=== PATIENT | female | born 1965 | race Two or more races ===

== ENCOUNTER 2022-04-13 14:59 | Emergency (ER) | payer MEDICAID, OTHER ==
[~2022-04-13] VITALS: Ht 162.6 cm; Wt 110.2 kg
[2022-04-13 15:22] VITALS: BP 151/9
[2022-04-13 17:41] LABS: Basophils # (auto) 0 10 ^3/uL (0-0.2); Basophils % (auto) 0.2 % (0.0-2.0); Eosinophils # (auto) 0.1 10 ^3/uL (0-0.8); Eosinophils % (auto) 1.6 % (0.0-7.0); Hematocrit 30.4 % (36.0-46.0); Hemoglobin 10.1 g/dL (12.2-16.2); Lymphocytes # (auto) 0.4 10 ^3/uL (0.4-5.4); Lymphocytes % (auto) 7.3 % (10.0-50.0); Mean Corpuscular Hemoglobin 29.7 pg (28.0-32.0); Mean Corpuscular Hgb Conc. 33.1 g/dL (32.0-36.0); Mean Corpuscular Volume 89.6 fL (80.0-100.0); Monocytes # (auto) 0.6 10 ^3/uL (0-1.3); Monocytes % (auto) 10.7 % (0.0-12.0); Neutrophils # (auto) 4.6 10 ^3/uL (1.6-8.6); Neutrophils % (auto) 80.2 % (37.0-80.0); Red Cell Distribution Width 14.5 % (11.8-14.3); White Blood Cell 5.7 10^3/uL (4.4-10.8)
[2022-04-13 18:04] LABS: Albumin 3.4 g/dL (3.4-5.0); BUN/Creatinine Ratio 15.8; Calcium 8.7 mg/dL (8.5-10.1); Potassium 4.3 mmol/L (3.5-5.1)
[2022-04-13 18:06] LABS: Bilirubin, Total 0.2 mg/dL (0.2-1.0); Total Protein 7.5 g/dL (6.4-8.2)
== END 2022-04-14 01:23 | disposition left against medical advice (07) ==
LOC: ER 14:59
DX: R79.1 Abnormal coagulation profile (principal); Z53.21 Procedure and treatment not carried out due to patient leaving prior to being seen by health care provider
CPT/HCPCS: 36415; 80053; 85025

== ENCOUNTER 2022-11-27 14:40 | Emergency (ER) | payer MEDICAID ==
[~2022-11-27] VITALS: Ht 162.6 cm; Wt 90.9 kg
[2022-11-27] MEDS ORDERED: SODIUM CHLORIDE 0.9% 500 ML IV ONE (15:00)
[2022-11-27 15:28] LABS: Basophils # (auto) 0.1 10 ^3/uL (0-0.2); Eosinophils # (auto) 0.3 10 ^3/uL (0-0.8); Eosinophils % (auto) 2.2 % (0.0-7.0); Hemoglobin 8.8 g/dL (12.2-16.2); Monocytes # (auto) 1.1 10 ^3/uL (0-1.3)
[2022-11-27 15:32] LABS: Basophils % (auto) 0.4 % (0.0-2.0); Hematocrit 27.6 % (36.0-46.0); Lymphocytes # (auto) 0.5 10 ^3/uL (0.4-5.4); Lymphocytes % (auto) 3.8 % (10.0-50.0); Mean Corpuscular Hemoglobin 28.9 pg (28.0-32.0); Mean Corpuscular Hgb Conc. 31.9 g/dL (32.0-36.0); Mean Corpuscular Volume 90.4 fL (80.0-100.0); Monocytes % (auto) 7.8 % (0.0-12.0); Neutrophils # (auto) 12.3 10 ^3/uL (1.6-8.6); Neutrophils % (auto) 85.8 % (37.0-80.0); Red Blood Cells 3.05 10^6/uL (4.0-5.20); Red Cell Distribution Width 14.2 % (11.8-14.3); White Blood Cell 14.3 10^3/uL (4.4-10.8)
[2022-11-27 15:41] LABS: Albumin 2.5 g/dL (3.4-5.0); Calcium 8.9 mg/dL (8.5-10.1); Potassium 3.8 mmol/L (3.5-5.1)
[2022-11-27 15:45] LABS: BUN/Creatinine Ratio 13.2 (10.0-20.0); Bilirubin, Total 0.1 mg/dL (0.2-1.0)
[2022-11-27] MEDS ORDERED: levoFLOXacin 500MG 100 ML IV ONE (17:15)
[2022-11-27] MEDS ORDERED: SODIUM CHLORIDE 0.9% 1,000 ML IV ONE (17:15)
[2022-11-27 17:46] LABS: Urine Amorphous Crystal FEW /hpf (None Seen); Urine Bacteria FEW /hpf (None Seen); Urine Blood 2+ /uL (Negative); Urine Budding Yeast FEW /hpf (None Seen); Urine Mucus FEW (None Seen); Urine Specific Gravity 1.028 (1.001-1.035); Urine WBC 194 /hpf (0 - 5)
[2022-11-27 18:14] VITALS: PULSE 79; RESP 20
[2022-11-27 19:45] VITALS: PULSE 82; RESP 19; O2SAT 99
[2022-11-27 19:52] VITALS: TEMP 98.4
[2022-11-27 20:00] VITALS: BP 174/75; PULSE 97; RESP 16; O2SAT 100
== END 2022-11-27 20:47 | disposition left against medical advice (07) ==
LOC: EDBD 14:40 → ER 14:40
DX: N10 Acute pyelonephritis (principal); D64.9 Anemia, unspecified; R42 Dizziness and giddiness; D72.829 Elevated white blood cell count, unspecified; Z90.49 Acquired absence of other specified parts of digestive tract; Z87.891 Personal history of nicotine dependence
CPT/HCPCS: 36415; 80053; 81001; 83605; 85025; 87040; 93005; 96365; 99285; J1956; J7030; J7040

== ENCOUNTER 2023-01-07 14:12 | Emergency (ER) | payer MEDICAID ==
[~2023-01-07] VITALS: Ht 160 cm; Wt 90.9 kg
[2023-01-07 14:44] VITALS: BP 90/50; PULSE 109; RESP 17; O2SAT 97
[2023-01-07 15:09] LABS: Hemoglobin 8.6 g/dL (12.2-16.2); Lymphocytes # (auto) 0.6 10 ^3/uL (0.4-5.4); Lymphocytes % (auto) 3.9 % (10.0-50.0); Monocytes # (auto) 1.1 10 ^3/uL (0-1.3); Red Cell Distribution Width 15.7 % (11.8-14.3)
[2023-01-07 15:11] LABS: Basophils # (auto) 0 10 ^3/uL (0-0.2); Basophils % (auto) 0.3 % (0.0-2.0); Eosinophils # (auto) 0.1 10 ^3/uL (0-0.8); Hematocrit 26.7 % (36.0-46.0); Mean Corpuscular Hemoglobin 27.5 pg (28.0-32.0); Mean Corpuscular Hgb Conc. 32.2 g/dL (32.0-36.0); Mean Corpuscular Volume 85.3 fL (80.0-100.0); Monocytes % (auto) 7.5 % (0.0-12.0); Neutrophils # (auto) 13.2 10 ^3/uL (1.6-8.6); Neutrophils % (auto) 87.3 % (37.0-80.0); Red Blood Cells 3.13 10^6/uL (4.0-5.20); White Blood Cell 15.1 10^3/uL (4.4-10.8)
[2023-01-07] MEDS ORDERED: ONDANSETRON ODT 4 MG TAB PO ONE (15:15)
[2023-01-07] MEDS ORDERED: SODIUM CHLORIDE 0.9% 1,000 ML IVB ONE (15:15)
[2023-01-07] MEDS ORDERED: HYDROcodone-ACET 10/325MG TAB PO ONE (15:15)
[2023-01-07 15:30] LABS: Alanine Aminotransferase 10 U/L (7-40); Albumin 3.7 g/dL (3.2-4.8); Alkaline Phosphatase 161 U/L (46-116); Anion Gap 4.7 (5-15); Aspartate Aminotransferase < 8 U/L (13-40); BUN/Creatinine Ratio 14.4 (10.0-20.0); Bilirubin, Total 0.3 mg/dL (0.2-1.0); Blood Urea Nitrogen 13 mg/dL (9-23); Calcium 9.2 mg/dL (8.7-10.4); Carbon Dioxide 29.3 mmol/L (20-30); Chloride 103 mmol/L (98-107); Glucose 105 mg/dL (74-106); Magnesium 1.7 mg/dL (1.6-2.6); Potassium 4.2 mmol/L (3.5-5.1); Sodium 137 mmol/L (136-145); Total Protein 6.3 g/dL (5.7-8.2)
[2023-01-07 15:49] LABS: INR 1.04 (0.9-1.15); Partial Thromboplastin Time 31.3 SEC (24.5-34.5); Prothrombin Time 10.9 sec (9.3-11.8)
[2023-01-07] MEDS ORDERED: metroNIDAZOLE 500MG/100ML 100 ML IV ONE (21:00)
[2023-01-07] MEDS ORDERED: SODIUM CHLORIDE 0.9% 2,750 ML IV ONE (21:00)
[2023-01-07] MEDS ORDERED: PIPERACILLIN-TAZOB 3.375GM 100 ML IV SCH (21:06)
[2023-01-07] MEDS ORDERED: VANCOMYCIN PER PHARMACY 0 MG IV SCH (21:15)
[2023-01-07] MEDS ORDERED: VANCOMYCIN 1GM/250ML 250 ML IV SCH (22:00)
[2023-01-07] MEDS ORDERED: PIPERACILLIN-TAZO 4.5GM 100 ML IV SCH (22:00)
[2023-01-08] MEDS ORDERED: VANCOMYCIN 1GM/250ML 250 ML IV ONE (01:00)
== END 2023-01-07 20:09 | disposition left against medical advice (07) ==
LOC: ER 14:12
DX: K65.1 Peritoneal abscess (principal); Z53.29 Procedure and treatment not carried out because of patient's decision for other reasons
CPT/HCPCS: 36415; 71045; 74176; 80053; 83605; 83690; 83735; 83880; 84443; 84484; 85025; 85610; 85730; 86850; 86900; 86901; 87040

== ENCOUNTER 2023-05-14 06:40 | Inpatient (IN) | payer MEDICAID ==
[2023-05-14] VITALS (46 sets, daily range): BP systolic 73–158; BP diastolic 38–84; PULSE 97–135; RESP 17–32; TEMP 36.6; O2SAT 93–100
[~2023-05-14] VITALS: Ht 167.6 cm; Wt 91.2 kg
[2023-05-14] MEDS ORDERED: PIPERACILLIN-TAZO 4.5GM 100 ML IV ONE (07:15)
[2023-05-14] MEDS ORDERED: MORPHINE SULFATE 4 MG/ML SYR/VIAL IV ONE (07:15)
[2023-05-14] MEDS ORDERED: ONDANSETRON HCL 4 MG/2 ML VIAL IV ONE (07:15)
[2023-05-14] MEDS ORDERED: SODIUM CHLORIDE 0.9% 2,000 ML IV ONE ×3 (07:15→21:00)
[2023-05-14] MEDS ORDERED: VANCOMYCIN 1GM/200ML 200 ML IV ONE (07:15)
[2023-05-14] MEDS ORDERED: ROCURONIUM 10MG/ML 10ML VIAL IV ONE ×3 (07:20→14:12)
[2023-05-14] MEDS ORDERED: ETOMIDATE (2MG/ML) 20ML VIAL IV ONE ×2 (07:20→07:45)
[2023-05-14] MEDS ORDERED: MIDAZOLAM DRIP 50 mg/50mL 50 ML IV ONE (07:25)
[2023-05-14] MEDS: PROPOFOL 100 ML IV SCH (07:30)
[2023-05-14] MEDS: MIDAZOLAM DRIP 50 mg/50mL 50 ML IV SCH (07:31)
[2023-05-14 07:50] LABS: Eosinophils # (auto) 0 10 ^3/uL (0-0.8)
[2023-05-14 07:55] LABS: Basophils # (auto) 0 10 ^3/uL (0-0.2); Basophils % (auto) 0.3 % (0.0-2.0); Eosinophils % (auto) 0.1 % (0.0-7.0); Hematocrit 35.7 % (36.0-46.0); Hemoglobin 10.9 g/dL (12.2-16.2); Lymphocytes # (auto) 1.4 10 ^3/uL (0.4-5.4); Lymphocytes % (auto) 7.8 % (10.0-50.0); Mean Corpuscular Hemoglobin 29.8 pg (28.0-32.0); Mean Corpuscular Hgb Conc. 30.6 g/dL (32.0-36.0); Mean Corpuscular Volume 97.5 fL (80.0-100.0); Monocytes # (auto) 0.8 10 ^3/uL (0-1.3); Monocytes % (auto) 4.4 % (0.0-12.0); Neutrophils # (auto) 15.9 10 ^3/uL (1.6-8.6); Neutrophils % (auto) 87.4 % (37.0-80.0); Red Blood Cells 3.66 10^6/uL (4.0-5.20); Red Cell Distribution Width 17.5 % (11.8-14.3); White Blood Cell 18.2 10^3/uL (4.4-10.8)
[2023-05-14 07:57] LABS: Alanine Aminotransferase 14 U/L (7-40); Albumin 3.2 g/dL (3.2-4.8); Alkaline Phosphatase 310 U/L (46-116); Anion Gap 16 (5-15); Aspartate Aminotransferase 56 U/L (13-40); BUN/Creatinine Ratio 9.9 (10.0-20.0); Blood Urea Nitrogen 16 mg/dL (9-23); Calcium 9.4 mg/dL (8.5-10.1); Carbon Dioxide 13 mmol/L (20-30); Chloride 103 mmol/L (98-107); Sodium 132 mmol/L (136-145)
[2023-05-14 07:58] LABS: Bilirubin, Total 0.6 mg/dL (0.2-1.0)
[2023-05-14 08:10] LABS: Glucose 253 mg/dL (74-106)
[2023-05-14 08:17] LABS: INR 1.08 (0.9-1.15); Prothrombin Time 11.3 sec (9.3-11.8)
[2023-05-14 08:19] LABS: Lactic Acid w/Reflex 7.3 mmol/L (0.4-2.0)
[2023-05-14 09:14] LABS: Lipase 24 U/L (12-53)
[2023-05-14 09:17] LABS: Urine Epithelial Cast None Seen /hpf (<5)
[2023-05-14 09:39] LABS: Urine Bacteria NONE SEEN /hpf (None Seen); Urine Blood 1+ /uL (Negative); Urine Clarity CLOUDY (Clear); Urine Color Yellow (Yellow); Urine Hyaline Cast FEW /lpf (0 - 2); Urine Mucus FEW (None Seen); Urine Protein, UAD 2+ (Negative); Urine Specific Gravity 1.022 (1.001-1.035); Urine Sperm PRESENT /hpf (None Seen); Urine Urobilinogen Normal (Negative); Urine WBC 48 /hpf (0 - 5); Urine WBC Clumps PRESENT /hpf (None Seen); Urine pH 6.5 (5.0-8.0)
[2023-05-14 09:58] LABS: Base Excess -12.9 mmol/L (-2.0-2.0)
[2023-05-14] MEDS ORDERED: SODIUM BICARBONATE 50ML VIAL 50 ML in SOD CHL 0.45% 1,000 ML IV SCH (10:15)
[2023-05-14] MEDS ORDERED: VANCOMYCIN PER PHARMACY 0 MG IV SCH ×2 (10:15→11:15)
[2023-05-14] MEDS ORDERED: metroNIDAZOLE 500MG/100ML 100 ML IV ONE ×2 (10:15→13:04)
[2023-05-14] MEDS ORDERED: MEROPENEM 1GM IVPB 100 ML IV ONE (10:15)
[2023-05-14] MEDS ORDERED: SODIUM BICARBONATE 50ML VIAL 50 ML in SOD CHL 0.45% 1,000 ML IV ONE (10:15)
[2023-05-14] MEDS ORDERED: ceFAZolin 1GM/50ML 50 ML IV ONE (10:15)
[2023-05-14] MEDS ORDERED: SODIUM CHLORIDE 0.9% 1,000 ML IV ONE (10:30)
[2023-05-14] MEDS ORDERED: PANTOPRAZOLE 40 MG/10 ML VIAL INJ IV ONE (10:30)
[2023-05-14] MEDS ORDERED: SODIUM CHLORIDE 0.9% 1,000 ML IV SCH (10:45)
[2023-05-14 10:58] LABS: Basophils # (auto) 0 10 ^3/uL (0-0.2); Basophils % (auto) 0.2 % (0.0-2.0); Eosinophils # (auto) 0 10 ^3/uL (0-0.8); Hematocrit 38.7 % (36.0-46.0); Lymphocytes # (auto) 0.4 10 ^3/uL (0.4-5.4); Lymphocytes % (auto) 2.6 % (10.0-50.0); Mean Corpuscular Hemoglobin 30.1 pg (28.0-32.0); Mean Corpuscular Volume 97.2 fL (80.0-100.0); Monocytes % (auto) 6.8 % (0.0-12.0); Neutrophils # (auto) 13.8 10 ^3/uL (1.6-8.6); Neutrophils % (auto) 90.4 % (37.0-80.0); Red Blood Cells 3.98 10^6/uL (4.0-5.20); Red Cell Distribution Width 17.4 % (11.8-14.3); White Blood Cell 15.3 10^3/uL (4.4-10.8)
[2023-05-14] MEDS ORDERED: ceFAZolin 1GM/50ML 50 ML IV SCH ×2 (11:00→14:00)
[2023-05-14] MEDS ORDERED: SODIUM BICARB 50ML SYR 100 ML in SODIUM CHLORIDE 0.9% 1,000 ML IV SCH (11:00)
[2023-05-14] MEDS ORDERED: SODIUM BICARBONATE 50ML VIAL 150 ML in D5W 5% 1,000 ML IV SCH (11:15)
[2023-05-14] MEDS ORDERED: DEXTROSE (50%) 50ML SYRG IV PRN (11:15)
[2023-05-14] MEDS ORDERED: CEFEPIME 2GM/50ML NS 50 ML IV ONE (11:15)
[2023-05-14 11:21] LABS: Alanine Aminotransferase 20 U/L (7-40); Albumin 3.2 g/dL (3.2-4.8); Alkaline Phosphatase 353 U/L (46-116); Anion Gap 11 (5-15); Aspartate Aminotransferase 61 U/L (13-40); BUN/Creatinine Ratio 10.3 (10.0-20.0); Blood Urea Nitrogen 16 mg/dL (9-23); Calcium 9.1 mg/dL (8.5-10.1); Carbon Dioxide 16 mmol/L (20-30); Chloride 104 mmol/L (98-107); Glucose 178 mg/dL (74-106); Potassium 4.9 mmol/L (3.5-5.1); Sodium 131 mmol/L (136-145)
[2023-05-14 11:22] LABS: Bilirubin, Total 1.3 mg/dL (0.2-1.0); Total Protein 5.9 g/dL (5.7-8.2)
[2023-05-14] MEDS: NOREPINEPHRINE 8 MG/250ML KIT 250 ML IV SCH ×2 (11:28→15:50)
[2023-05-14] MEDS ORDERED: LIDOCAINE 1% (LOCAL ANESTH.) PF 5ml SDV ID ONE (11:30)
[2023-05-14] MEDS ORDERED: PHENYLEPHRINE HCL 10 MG/ML VL ONE (11:47)
[2023-05-14] MEDS: ACCU-CHEK COMFORT CURVE STRIP VI SCH ×4 (12:00→23:41)
[2023-05-14] MEDS: InsuLIN REG 1unit/0.01ml Soln (100units/ml) SC SCH ×4 (12:00→23:41)
[2023-05-14] MEDS: IPRATROPIUM BROM 0.5 MG/2.5ML INH SOL NEB SCH ×3 (12:00→23:48)
[2023-05-14] MEDS ORDERED: metroNIDAZOLE 500MG/100ML 100 ML IV SCH ×2 (12:00→14:00)
[2023-05-14 12:15] LABS: INR 1.09 (0.9-1.15); Partial Thromboplastin Time 30.5 SEC (24.5-34.5); Prothrombin Time 11.4 sec (9.3-11.8)
[2023-05-14] MEDS ORDERED: fentaNYL CITRATE 5 ML ONE (12:15)
[2023-05-14] MEDS ORDERED: VASOPRESSIN 20 UNIT/ML ONE (13:02)
[2023-05-14] MEDS ORDERED: MIDAZOLAM HCL 2MG/2ML 2ml VIAL (1mg/ml) ONE (13:16)
[2023-05-14] MEDS ORDERED: CALCIUM CHL(10%) 100MG/ML 10ML VIAL IV ONE (13:31)
[2023-05-14] MEDS ORDERED: SODIUM BICARBONATE 8.4 % INJ 50ML VIAL IV ONE (13:31)
[2023-05-14] MEDS ORDERED: D5W/SOD CHL 0.45%/KCL 20MEQ 1,000 ML IV SCH (14:45)
[2023-05-14 15:27] LABS: Base Excess -12.4 mmol/L (-2.0-2.0)
[2023-05-14] MEDS: fentaNYL Drip 2500mCg/250mlNS 250 ML IV SCH (15:49)
[2023-05-14] MEDS ORDERED: PHENYLEPHRINE IV 250 ML IV ONE (15:57)
[2023-05-14] MEDS: PHENYLEPHRINE IV 250 ML IV SCH ×3 (16:05→21:27)
[2023-05-14 17:32] LABS: Lactic Acid w/Reflex 2.2 mmol/L (0.4-2.0)
[2023-05-14] MEDS ORDERED: ALBUMIN 25% 50 ML IV ONE ×2 (21:00)
[2023-05-14] MEDS: SODIUM CHLOR 0.9% PF (SALINE LOCK) 10ML VIAL/SYR IV SCH (21:25)
[2023-05-14] MEDS: PANTOPRAZOLE 40 MG/10 ML VIAL INJ IV SCH (21:25)
[2023-05-14] MEDS: CEFEPIME 2GM/50ML NS 50 ML IV SCH (21:25)
[2023-05-14] MEDS ORDERED: PANTOPRAZOLE 40 MG/10 ML VIAL INJ IV SCH (22:00)
[2023-05-14] MEDS: EPINEPHrine HCL 250 ML IV SCH (22:33)
[2023-05-14] MEDS: SODIUM CHLORIDE 0.9% 1,000 ML IV SCH (22:55)
[2023-05-15] VITALS (111 sets, daily range): BP systolic 79–154; BP diastolic 35–104; PULSE 105–124; RESP 14–32; TEMP 97.7–98.5; O2SAT 89–100
[2023-05-15] MEDS: PHENYLEPHRINE IV 250 ML IV SCH ×5 (00:33→14:26)
[2023-05-15] MEDS: NOREPINEPHRINE 8 MG/250ML KIT 250 ML IV SCH ×3 (01:13→09:47)
[2023-05-15] MEDS: SODIUM CHLORIDE 0.9% 1,000 ML IV SCH ×2 (02:00→05:11)
[2023-05-15] MEDS: InsuLIN REG 1unit/0.01ml Soln (100units/ml) SC SCH ×6 (04:00→23:38)
[2023-05-15] MEDS: SODIUM BICARBONATE 50ML VIAL 150 ML in D5W 5% 1,000 ML IV SCH ×2 (04:00→12:57)
[2023-05-15 04:11] LABS: Basophils # (auto) 0 10 ^3/uL (0-0.2); Basophils % (auto) 0.2 % (0.0-2.0); Eosinophils # (auto) 0 10 ^3/uL (0-0.8); Hematocrit 27.4 % (36.0-46.0); Hemoglobin 8.5 g/dL (12.2-16.2); Lymphocytes # (auto) 0.4 10 ^3/uL (0.4-5.4); Lymphocytes % (auto) 4.2 % (10.0-50.0); Mean Corpuscular Hemoglobin 29.6 pg (28.0-32.0); Mean Corpuscular Volume 95.7 fL (80.0-100.0); Monocytes # (auto) 0.7 10 ^3/uL (0-1.3); Monocytes % (auto) 7.6 % (0.0-12.0); Neutrophils # (auto) 7.6 10 ^3/uL (1.6-8.6); Nucleated Red Blood Cells % 0.1 %; Red Blood Cells 2.87 10^6/uL (4.0-5.20); Red Cell Distribution Width 16.7 % (11.8-14.3); White Blood Cell 8.7 10^3/uL (4.4-10.8)
[2023-05-15] MEDS: ACCU-CHEK COMFORT CURVE STRIP VI SCH ×6 (04:21→23:38)
[2023-05-15 04:35] LABS: Alanine Aminotransferase 16 U/L (7-40); Albumin 2.3 g/dL (3.2-4.8); Alkaline Phosphatase 121 U/L (46-116); Anion Gap 12 (5-15); Aspartate Aminotransferase 54 U/L (13-40); BUN/Creatinine Ratio 13.3 (10.0-20.0); Bilirubin, Total 0.9 mg/dL (0.2-1.0); Blood Urea Nitrogen 19 mg/dL (9-23); Carbon Dioxide 12 mmol/L (20-30); Glucose 75 mg/dL (74-106); Potassium 4.2 mmol/L (3.5-5.1); Sodium 140 mmol/L (136-145); Total Protein 3.8 g/dL (5.7-8.2)
[2023-05-15 05:10] LABS: Chloride 116 mmol/L (98-107)
[2023-05-15] MEDS: VANCOMYCIN 1GM/200ML 200 ML IV SCH ×2 (05:11→23:53)
[2023-05-15] MEDS: CEFEPIME 2GM/50ML NS 50 ML IV SCH ×3 (05:11→21:18)
[2023-05-15] MEDS: IPRATROPIUM BROM 0.5 MG/2.5ML INH SOL NEB SCH ×3 (06:14→18:12)
[2023-05-15] MEDS: ALBUTEROL SULF 2.5 MG/0.5ML(0.5%) NEB SOLN NEB PRN ×3 (06:14→18:12)
[2023-05-15] MEDS: VASOPRESSIN 20 UNITS in SODIUM CHL 0.9% 99 ML IV SCH ×2 (06:15→17:22)
[2023-05-15] MEDS: PROPOFOL 100 ML IV SCH (07:30)
[2023-05-15 07:46] LABS: Base Excess -12.4 mmol/L (-2.0-2.0)
[2023-05-15] MEDS: PANTOPRAZOLE 40 MG/10 ML VIAL INJ IV SCH ×2 (09:44→21:18)
[2023-05-15] MEDS: SODIUM CHLOR 0.9% PF (SALINE LOCK) 10ML VIAL/SYR IV SCH ×2 (09:44→21:18)
[2023-05-15] MEDS: MIDAZOLAM DRIP 50 mg/50mL 50 ML IV SCH ×2 (09:59→23:54)
[2023-05-15] MEDS ORDERED: PANTOPRAZOLE 40 MG/10 ML VIAL INJ IV SCH (10:00)
[2023-05-15] MEDS: NOREPINEPHRINE BITARTRATE 32 MG in SODIUM CHL 0.9% 218 ML IV SCH (13:44)
[2023-05-15] MEDS: PHENYLEPHRINE INJ 80 MG in SODIUM CHL 0.9% 242 ML IV SCH ×3 (16:11→22:26)
[2023-05-15] MEDS: fentaNYL Drip 2500mCg/250mlNS 250 ML IV SCH (17:54)
[2023-05-15] MEDS: EPINEPHrine HCL 250 ML IV SCH (20:17)
[2023-05-16] VITALS (107 sets, daily range): BP systolic 82–167; BP diastolic 35–107; PULSE 86–122; RESP 8–31; TEMP 98.3–98.9; O2SAT 98–100
[2023-05-16] MEDS: IPRATROPIUM BROM 0.5 MG/2.5ML INH SOL NEB SCH ×4 (00:05→18:15)
[2023-05-16] MEDS: ALBUTEROL SULF 2.5 MG/0.5ML(0.5%) NEB SOLN NEB PRN ×4 (00:05→18:15)
[2023-05-16 03:39] LABS: Basophils # (auto) 0 10 ^3/uL (0-0.2); Basophils % (auto) 0.1 % (0.0-2.0); Eosinophils # (auto) 0 10 ^3/uL (0-0.8); Lymphocytes # (auto) 0.2 10 ^3/uL (0.4-5.4); Lymphocytes % (auto) 1.1 % (10.0-50.0); Nucleated Red Blood Cells % 0.1 %
[2023-05-16 03:43] LABS: Hematocrit 24.7 % (36.0-46.0); Hemoglobin 7.9 g/dL (12.2-16.2); Mean Corpuscular Hemoglobin 29.7 pg (28.0-32.0); Mean Corpuscular Hgb Conc. 32.2 g/dL (32.0-36.0); Mean Corpuscular Volume 92.4 fL (80.0-100.0); Monocytes # (auto) 1.4 10 ^3/uL (0-1.3); Monocytes % (auto) 7.3 % (0.0-12.0); Neutrophils % (auto) 91.5 % (37.0-80.0); Red Blood Cells 2.67 10^6/uL (4.0-5.20); White Blood Cell 18.6 10^3/uL (4.4-10.8)
[2023-05-16 03:49] LABS: Alanine Aminotransferase 19 U/L (7-40); Albumin 2.1 g/dL (3.2-4.8); Alkaline Phosphatase 108 U/L (46-116); Anion Gap 11 (5-15); Aspartate Aminotransferase 41 U/L (13-40); BUN/Creatinine Ratio 14.4 (10.0-20.0); Blood Urea Nitrogen 27 mg/dL (9-23); Calcium 7.4 mg/dL (8.7-10.4); Carbon Dioxide 15 mmol/L (20-30); Chloride 112 mmol/L (98-107); Glucose 103 mg/dL (74-106); Potassium 4.2 mmol/L (3.5-5.1); Sodium 138 mmol/L (136-145)
[2023-05-16 03:50] LABS: Bilirubin, Total 0.6 mg/dL (0.2-1.0); Total Protein 3.9 g/dL (5.7-8.2)
[2023-05-16] MEDS: InsuLIN REG 1unit/0.01ml Soln (100units/ml) SC SCH ×5 (04:00→20:00)
[2023-05-16] MEDS: ACCU-CHEK COMFORT CURVE STRIP VI SCH ×5 (04:15→20:00)
[2023-05-16] MEDS: VASOPRESSIN 20 UNITS in SODIUM CHL 0.9% 99 ML IV SCH ×2 (04:16→17:28)
[2023-05-16] MEDS: CEFEPIME 2GM/50ML NS 50 ML IV SCH ×3 (05:26→21:37)
[2023-05-16] MEDS: NOREPINEPHRINE BITARTRATE 32 MG in SODIUM CHL 0.9% 218 ML IV SCH (05:27)
[2023-05-16] MEDS: PHENYLEPHRINE INJ 80 MG in SODIUM CHL 0.9% 242 ML IV SCH (05:27)
[2023-05-16] MEDS: PROPOFOL 100 ML IV SCH (07:30)
[2023-05-16 08:02] LABS: Base Excess -7.6 mmol/L (-2.0-2.0)
[2023-05-16 09:08] LABS: Basophils # (auto) 0.1 10 ^3/uL (0-0.2); Eosinophils # (auto) 0 10 ^3/uL (0-0.8); Hemoglobin 7.7 g/dL (12.2-16.2)
[2023-05-16 09:11] LABS: Basophils % (auto) 0.6 % (0.0-2.0); Hematocrit 24.1 % (36.0-46.0); Lymphocytes # (auto) 0.2 10 ^3/uL (0.4-5.4); Lymphocytes % (auto) 0.8 % (10.0-50.0); Mean Corpuscular Hemoglobin 29.5 pg (28.0-32.0); Mean Corpuscular Hgb Conc. 31.9 g/dL (32.0-36.0); Mean Corpuscular Volume 92.3 fL (80.0-100.0); Monocytes % (auto) 10.5 % (0.0-12.0); Neutrophils # (auto) 16.7 10 ^3/uL (1.6-8.6); Neutrophils % (auto) 88.1 % (37.0-80.0); Nucleated Red Blood Cells % 0.1 %; Red Blood Cells 2.61 10^6/uL (4.0-5.20); Red Cell Distribution Width 16.7 % (11.8-14.3)
[2023-05-16 09:32] LABS: Alanine Aminotransferase 31 U/L (7-40); Albumin 2.2 g/dL (3.2-4.8); Alkaline Phosphatase 110 U/L (46-116); Anion Gap 14 (5-15); Aspartate Aminotransferase 50 U/L (13-40); BUN/Creatinine Ratio 13.4 (10.0-20.0); Bilirubin, Total 0.5 mg/dL (0.2-1.0); Blood Urea Nitrogen 27 mg/dL (9-23); Calcium 7.9 mg/dL (8.5-10.1); Carbon Dioxide 16 mmol/L (20-30); Chloride 109 mmol/L (98-107); Glucose 108 mg/dL (74-106); Potassium 4.5 mmol/L (3.5-5.1); Sodium 139 mmol/L (136-145)
[2023-05-16] MEDS: SODIUM CHLOR 0.9% PF (SALINE LOCK) 10ML VIAL/SYR IV SCH ×2 (10:58→21:37)
[2023-05-16] MEDS: PANTOPRAZOLE 40 MG/10 ML VIAL INJ IV SCH ×2 (10:58→21:37)
[2023-05-16] MEDS: fentaNYL Drip 2500mCg/250mlNS 250 ML IV SCH ×2 (11:15→15:29)
[2023-05-16] MEDS: SODIUM BICARBONATE 50ML VIAL 150 ML in D5W 5% 1,000 ML IV SCH ×3 (12:01)
[2023-05-16] MEDS: MIDAZOLAM DRIP 50 mg/50mL 50 ML IV SCH (13:23)
[2023-05-16] MEDS: EPINEPHrine HCL 250 ML IV SCH (21:00)
[2023-05-17] VITALS (115 sets, daily range): BP systolic 88–292; BP diastolic 28–266; PULSE 73–112; RESP 19–30; TEMP 97.5–98.7; O2SAT 94–100
[2023-05-17] MEDS: ACCU-CHEK COMFORT CURVE STRIP VI SCH ×7 (00:08→23:42)
[2023-05-17] MEDS: IPRATROPIUM BROM 0.5 MG/2.5ML INH SOL NEB SCH ×5 (00:24→18:53)
[2023-05-17] MEDS: ALBUTEROL SULF 2.5 MG/0.5ML(0.5%) NEB SOLN NEB PRN ×5 (00:24→18:53)
[2023-05-17] MEDS: SODIUM BICARBONATE 50ML VIAL 150 ML in D5W 5% 1,000 ML IV SCH (00:59)
[2023-05-17] MEDS: MIDAZOLAM DRIP 50 mg/50mL 50 ML IV SCH ×2 (01:00→13:30)
[2023-05-17] MEDS ORDERED: SODIUM BICARBONATE 8.4 % INJ 50ML VIAL IV ONE (01:05)
[2023-05-17] MEDS: VASOPRESSIN 20 UNITS in SODIUM CHL 0.9% 99 ML IV SCH ×2 (03:00→14:31)
[2023-05-17] MEDS ORDERED: VASOPRESSIN 20 UNIT/ML ONE (03:24)
[2023-05-17] MEDS: InsuLIN REG 1unit/0.01ml Soln (100units/ml) SC SCH ×7 (04:00→23:43)
[2023-05-17 04:10] LABS: Basophils # (auto) 0 10 ^3/uL (0-0.2); Basophils % (auto) 0.2 % (0.0-2.0); Eosinophils # (auto) 0 10 ^3/uL (0-0.8); Monocytes # (auto) 1.3 10 ^3/uL (0-1.3); Nucleated Red Blood Cells % 0.1 %
[2023-05-17 04:15] LABS: Lymphocytes # (auto) 0.1 10 ^3/uL (0.4-5.4); Lymphocytes % (auto) 0.9 % (10.0-50.0); Mean Corpuscular Hemoglobin 29.1 pg (28.0-32.0); Mean Corpuscular Hgb Conc. 31.5 g/dL (32.0-36.0); Mean Corpuscular Volume 92.4 fL (80.0-100.0); Monocytes % (auto) 8.1 % (0.0-12.0); Neutrophils # (auto) 14.7 10 ^3/uL (1.6-8.6); Neutrophils % (auto) 90.8 % (37.0-80.0); Red Blood Cells 2.38 10^6/uL (4.0-5.20); White Blood Cell 16.2 10^3/uL (4.4-10.8)
[2023-05-17 04:33] LABS: Alanine Aminotransferase 20 U/L (7-40); Alkaline Phosphatase 107 U/L (46-116); Anion Gap 10 (5-15); BUN/Creatinine Ratio 15.2 (10.0-20.0); Blood Urea Nitrogen 31 mg/dL (9-23); Calcium 7.8 mg/dL (8.7-10.4); Carbon Dioxide 20 mmol/L (20-30); Chloride 108 mmol/L (98-107); Glucose 122 mg/dL (74-106); Sodium 138 mmol/L (136-145)
[2023-05-17 04:34] LABS: Albumin 2.2 g/dL (3.2-4.8); Aspartate Aminotransferase 38 U/L (13-40); Bilirubin, Total 0.5 mg/dL (0.2-1.0); Total Protein 4.2 g/dL (5.7-8.2)
[2023-05-17 04:37] LABS: Hemoglobin 6.9 g/dL (12.2-16.2)
[2023-05-17] MEDS: CEFEPIME 2GM/50ML NS 50 ML IV SCH ×3 (06:29→22:02)
[2023-05-17] MEDS: PROPOFOL 100 ML IV SCH (07:30)
[2023-05-17 07:33] LABS: Base Excess -2.4 mmol/L (-2.0-2.0)
[2023-05-17] MEDS: NOREPINEPHRINE BITARTRATE 32 MG in SODIUM CHL 0.9% 218 ML IV SCH (07:44)
[2023-05-17] MEDS ORDERED: FUROSEMIDE 20 MG/2 ML VIAL IV ONE (09:30)
[2023-05-17] MEDS ORDERED: SODIUM CHLORIDE 0.9% 1,000 ML IV SCH (09:30)
[2023-05-17] MEDS: PANTOPRAZOLE 40 MG/10 ML VIAL INJ IV SCH ×2 (09:57→22:02)
[2023-05-17] MEDS: SODIUM CHLOR 0.9% PF (SALINE LOCK) 10ML VIAL/SYR IV SCH ×2 (09:57→22:02)
[2023-05-17] MEDS: fentaNYL Drip 2500mCg/250mlNS 250 ML IV SCH (11:45)
[2023-05-17] MEDS ORDERED: TPN PER PHARMACY 0 ML IV SCH (13:00)
[2023-05-17] MEDS ORDERED: levoFLOXacin 250MG 50 ML IV ONE (13:00)
[2023-05-17] MEDS ORDERED: IOHEXOL 300 MG/ML 100ML BOTTLE IJ ONE (13:25)
[2023-05-17 13:44] LABS: Urine Epithelial Cast None Seen /hpf (<5)
[2023-05-17 14:01] LABS: Urine Bacteria FEW /hpf (None Seen); Urine Blood 1+ /uL (Negative); Urine Budding Yeast MODERATE /hpf (None Seen); Urine Clarity HAZY (Clear); Urine Color Yellow (Yellow); Urine Hyaline Cast FEW /lpf (0 - 2); Urine Protein, UAD 1+ (Negative); Urine Specific Gravity 1.019 (1.001-1.035); Urine Urobilinogen Normal (Negative); Urine WBC 57 /hpf (0 - 5)
[2023-05-17] MEDS: ALBUMIN 25% 50 ML IV SCH ×2 (14:23→20:38)
[2023-05-17] MEDS: FUROSEMIDE 40 MG/4 ML VIAL IV SCH ×2 (14:25→20:39)
[2023-05-17] MEDS: PHENYLEPHRINE INJ 80 MG in SODIUM CHL 0.9% 242 ML IV SCH (15:00)
[2023-05-17 16:13] LABS: Magnesium 1.5 mg/dL (1.6-2.6)
[2023-05-17 16:15] LABS: Phosphorus 4.5 mg/dL (2.4-5.1)
[2023-05-17] MEDS ORDERED: MAGNESIUM SULFATE 1GM/100ML 100 ML IV ONE (17:00)
[2023-05-17] MEDS ORDERED: AMINO ACID INFUSION IN D10W 1,000 ML IV SCH (20:00)
[2023-05-17] MEDS: EPINEPHrine HCL 250 ML IV SCH (21:00)
[2023-05-18] VITALS (108 sets, daily range): BP systolic 89–171; BP diastolic 38–165; PULSE 79–104; RESP 15–29; TEMP 97.2–98.9; O2SAT 98–100
[2023-05-18] MEDS: IPRATROPIUM BROM 0.5 MG/2.5ML INH SOL NEB SCH ×4 (00:47→18:24)
[2023-05-18] MEDS: ALBUTEROL SULF 2.5 MG/0.5ML(0.5%) NEB SOLN NEB PRN ×4 (00:47→18:24)
[2023-05-18] MEDS: VASOPRESSIN 20 UNITS in SODIUM CHL 0.9% 99 ML IV SCH ×3 (02:04→23:11)
[2023-05-18 03:35] LABS: Basophils # (auto) 0 10 ^3/uL (0-0.2); Basophils % (auto) 0.1 % (0.0-2.0); Eosinophils # (auto) 0 10 ^3/uL (0-0.8); Hemoglobin 8.1 g/dL (12.2-16.2); Monocytes # (auto) 0.6 10 ^3/uL (0-1.3); Red Cell Distribution Width 16.3 % (11.8-14.3)
[2023-05-18 03:38] LABS: Eosinophils % (auto) 0.1 % (0.0-7.0); Hematocrit 24.6 % (36.0-46.0); Lymphocytes # (auto) 0.6 10 ^3/uL (0.4-5.4); Lymphocytes % (auto) 4.9 % (10.0-50.0); Mean Corpuscular Hemoglobin 29.7 pg (28.0-32.0); Mean Corpuscular Volume 90.2 fL (80.0-100.0); Monocytes % (auto) 5.3 % (0.0-12.0); Neutrophils # (auto) 10.8 10 ^3/uL (1.6-8.6); Neutrophils % (auto) 89.6 % (37.0-80.0); Red Blood Cells 2.73 10^6/uL (4.0-5.20)
[2023-05-18 03:59] LABS: Alanine Aminotransferase 19 U/L (7-40); Alkaline Phosphatase 103 U/L (46-116); Anion Gap 9 (5-15); BUN/Creatinine Ratio 16.5 (10.0-20.0); Blood Urea Nitrogen 31 mg/dL (9-23); Carbon Dioxide 24 mmol/L (20-30); Chloride 103 mmol/L (98-107); Glucose 249 mg/dL (74-106); Magnesium 1.7 mg/dL (1.6-2.6); Potassium 3.1 mmol/L (3.5-5.1); Sodium 136 mmol/L (136-145)
[2023-05-18 04:00] LABS: Albumin 2.6 g/dL (3.2-4.8); Aspartate Aminotransferase 24 U/L (13-40); Bilirubin, Total 0.6 mg/dL (0.2-1.0); Phosphorus 3.8 mg/dL (2.4-5.1); Total Protein 4.8 g/dL (5.7-8.2)
[2023-05-18] MEDS: InsuLIN REG 1unit/0.01ml Soln (100units/ml) SC SCH ×7 (04:00→20:00)
[2023-05-18 04:43] LABS: Triglycerides 320 mg/dL (< 150)
[2023-05-18] MEDS: ALBUMIN 25% 50 ML IV SCH (04:56)
[2023-05-18] MEDS: ACCU-CHEK COMFORT CURVE STRIP VI SCH ×3 (05:29→17:30)
[2023-05-18] MEDS: FUROSEMIDE 40 MG/4 ML VIAL IV SCH ×2 (06:20→12:07)
[2023-05-18] MEDS: MIDAZOLAM DRIP 50 mg/50mL 50 ML IV SCH (06:20)
[2023-05-18] MEDS: CEFEPIME 2GM/50ML NS 50 ML IV SCH ×3 (06:20→21:59)
[2023-05-18] MEDS: fentaNYL Drip 2500mCg/250mlNS 250 ML IV SCH (06:21)
[2023-05-18] MEDS: PROPOFOL 100 ML IV SCH (07:30)
[2023-05-18 08:17] LABS: Base Excess 0.5 mmol/L (-2.0-2.0)
[2023-05-18] MEDS ORDERED: FUROSEMIDE 20 MG/2 ML VIAL IV ONE (09:00)
[2023-05-18] MEDS ORDERED: VANCOMYCIN 500 MG in D5W 5% 100 ML IV SCH (09:00)
[2023-05-18] MEDS ORDERED: POTASSIUM CHL 20MEQ/100ML 100 ML IV SCH (10:00)
[2023-05-18] MEDS ORDERED: DEXTROSE (50%) 50ML SYRG IV PRN (11:15)
[2023-05-18] MEDS: SODIUM CHLOR 0.9% PF (SALINE LOCK) 10ML VIAL/SYR IV SCH ×2 (11:46→22:02)
[2023-05-18] MEDS: PANTOPRAZOLE 40 MG/10 ML VIAL INJ IV SCH ×2 (12:00→12:08)
[2023-05-18] MEDS: POTASSIUM CHL 20MEQ/100ML 100 ML IV SCH ×2 (12:01→17:21)
[2023-05-18] MEDS: NOREPINEPHRINE BITARTRATE 32 MG in SODIUM CHL 0.9% 218 ML IV SCH (12:15)
[2023-05-18] MEDS: levoFLOXacin 250MG 50 ML IV SCH (14:59)
[2023-05-18] MEDS: PHENYLEPHRINE INJ 80 MG in SODIUM CHL 0.9% 242 ML IV SCH (15:00)
[2023-05-18] MEDS ORDERED: POTASSIUM CHL 20MEQ/100ML 100 ML IV ONE (17:11)
[2023-05-18] MEDS ORDERED: TPN PER PHARMACY IV NR ×10 (20:00)
[2023-05-18] MEDS: EPINEPHrine HCL 250 ML IV SCH (21:00)
[2023-05-19] VITALS (85 sets, daily range): BP systolic 80–119; BP diastolic 39–70; PULSE 82–108; RESP 12–28; TEMP 98.4–98.6; O2SAT 99–100
[2023-05-19] MEDS: ALBUTEROL SULF 2.5 MG/0.5ML(0.5%) NEB SOLN NEB PRN ×4 (00:23→18:24)
[2023-05-19] MEDS: IPRATROPIUM BROM 0.5 MG/2.5ML INH SOL NEB SCH ×4 (00:23→18:24)
[2023-05-19] MEDS: ACCU-CHEK COMFORT CURVE STRIP VI SCH ×4 (00:43→18:00)
[2023-05-19] MEDS: InsuLIN REG 1unit/0.01ml Soln (100units/ml) SC SCH ×6 (04:00→18:00)
[2023-05-19 04:10] LABS: Basophils # (auto) 0 10 ^3/uL (0-0.2); Eosinophils # (auto) 0 10 ^3/uL (0-0.8); Eosinophils % (auto) 0.4 % (0.0-7.0); Lymphocytes # (auto) 0.3 10 ^3/uL (0.4-5.4); Lymphocytes % (auto) 3.1 % (10.0-50.0); Monocytes # (auto) 0.8 10 ^3/uL (0-1.3)
[2023-05-19 04:13] LABS: Hematocrit 24.2 % (36.0-46.0); Hemoglobin 8.1 g/dL (12.2-16.2); Mean Corpuscular Hemoglobin 30.2 pg (28.0-32.0); Mean Corpuscular Hgb Conc. 33.6 g/dL (32.0-36.0); Mean Corpuscular Volume 89.9 fL (80.0-100.0); Monocytes % (auto) 7.7 % (0.0-12.0); Neutrophils # (auto) 9.7 10 ^3/uL (1.6-8.6); Neutrophils % (auto) 88.8 % (37.0-80.0); Nucleated Red Blood Cells % 0.1 %; Red Blood Cells 2.69 10^6/uL (4.0-5.20)
[2023-05-19 04:31] LABS: Alanine Aminotransferase 14 U/L (7-40); Albumin 2.6 g/dL (3.2-4.8); Alkaline Phosphatase 97 U/L (46-116); Anion Gap 12 (5-15); Aspartate Aminotransferase 14 U/L (13-40); BUN/Creatinine Ratio 20.8 (10.0-20.0); Bilirubin, Total 0.6 mg/dL (0.2-1.0); Blood Urea Nitrogen 36 mg/dL (9-23); Calcium 8.2 mg/dL (8.7-10.4); Carbon Dioxide 24 mmol/L (20-30); Chloride 105 mmol/L (98-107); Glucose 74 mg/dL (74-106); Magnesium 1.6 mg/dL (1.6-2.6); Phosphorus 2.8 mg/dL (2.4-5.1); Sodium 141 mmol/L (136-145); Total Protein 4.7 g/dL (5.7-8.2)
[2023-05-19] MEDS: FUROSEMIDE 40 MG/4 ML VIAL IV SCH (05:12)
[2023-05-19] MEDS: CEFEPIME 2GM/50ML NS 50 ML IV SCH ×3 (05:12→21:22)
[2023-05-19] MEDS: fentaNYL Drip 2500mCg/250mlNS 250 ML IV SCH (05:23)
[2023-05-19] MEDS: PROPOFOL 100 ML IV SCH (07:30)
[2023-05-19] MEDS: MIDAZOLAM DRIP 50 mg/50mL 50 ML IV SCH (07:30)
[2023-05-19 08:00] LABS: Base Excess 3.9 mmol/L (-2.0-2.0)
[2023-05-19] MEDS ORDERED: POTASSIUM CHL 20MEQ/100ML 100 ML IV ONE ×2 (08:15→12:00)
[2023-05-19] MEDS: PANTOPRAZOLE 40 MG/10 ML VIAL INJ IV SCH ×2 (09:09→21:20)
[2023-05-19] MEDS: SODIUM CHLOR 0.9% PF (SALINE LOCK) 10ML VIAL/SYR IV SCH ×2 (09:10→21:20)
[2023-05-19] MEDS: levoFLOXacin 250MG 50 ML IV SCH (09:10)
[2023-05-19] MEDS: NOREPINEPHRINE BITARTRATE 32 MG in SODIUM CHL 0.9% 218 ML IV SCH (09:12)
[2023-05-19] MEDS ORDERED: MAGNESIUM SULFATE 1GM/100ML 100 ML IV ONE (10:00)
[2023-05-19] MEDS ORDERED: FUROSEMIDE 20 MG/2 ML VIAL IV SCH (10:00)
[2023-05-19] MEDS: VASOPRESSIN 20 UNITS in SODIUM CHL 0.9% 99 ML IV SCH ×2 (10:18→21:25)
[2023-05-19] MEDS: PHENYLEPHRINE INJ 80 MG in SODIUM CHL 0.9% 242 ML IV SCH (15:00)
[2023-05-19] MEDS ORDERED: TPN PER PHARMACY IV NR ×10 (20:00)
[2023-05-19] MEDS: EPINEPHrine HCL 250 ML IV SCH (21:00)
[2023-05-20] VITALS (109 sets, daily range): BP systolic 85–128; BP diastolic 44–65; PULSE 83–114; RESP 12–31; TEMP 97.8–98.9; O2SAT 98–100
[2023-05-20] MEDS: IPRATROPIUM BROM 0.5 MG/2.5ML INH SOL NEB SCH ×3 (00:11→11:50)
[2023-05-20] MEDS: ALBUTEROL SULF 2.5 MG/0.5ML(0.5%) NEB SOLN NEB PRN ×4 (00:11→18:13)
[2023-05-20] MEDS: ACCU-CHEK COMFORT CURVE STRIP VI SCH ×4 (00:50→18:00)
[2023-05-20] MEDS: InsuLIN REG 1unit/0.01ml Soln (100units/ml) SC SCH ×4 (00:51→18:00)
[2023-05-20 05:45] LABS: Alanine Aminotransferase 10 U/L (7-40); Albumin 2.8 g/dL (3.2-4.8); Alkaline Phosphatase 91 U/L (46-116); Anion Gap 9 (5-15); Aspartate Aminotransferase 12 U/L (13-40); BUN/Creatinine Ratio 22.3 (10.0-20.0); Blood Urea Nitrogen 35 mg/dL (9-23); Calcium 8.7 mg/dL (8.5-10.1); Carbon Dioxide 27 mmol/L (20-30); Chloride 106 mmol/L (98-107); Glucose 148 mg/dL (74-106); Phosphorus 2.7 mg/dL (2.4-5.1); Potassium 3.2 mmol/L (3.5-5.1); Sodium 142 mmol/L (136-145)
[2023-05-20 05:46] LABS: Bilirubin, Total 0.4 mg/dL (0.2-1.0); Total Protein 5.2 g/dL (5.7-8.2)
[2023-05-20 05:58] LABS: Hemoglobin 8.5 g/dL (12.2-16.2)
[2023-05-20 06:02] LABS: Hematocrit 26.5 % (36.0-46.0); Mean Corpuscular Hemoglobin 28.9 pg (28.0-32.0); Mean Corpuscular Hgb Conc. 32.1 g/dL (32.0-36.0); Mean Corpuscular Volume 89.9 fL (80.0-100.0); Red Blood Cells 2.94 10^6/uL (4.0-5.20); Red Cell Distribution Width 16.1 % (11.8-14.3); White Blood Cell 14.3 10^3/uL (4.4-10.8)
[2023-05-20 06:18] LABS: Band Neutrophils % (manual) 0; Basophils % (manual) 0 (0.0-2.0); Blast Cells 0; Metamyelocytes % 0; Promyelocytes % 0; Reactive Lymphocytes 0
[2023-05-20] MEDS ORDERED: POTASSIUM CHL 20MEQ/100ML 100 ML IV ONE ×2 (06:30→10:00)
[2023-05-20 06:47] LABS: Magnesium 1.9 mg/dL (1.6-2.6)
[2023-05-20 07:07] LABS: Base Excess 1.9 mmol/L (-2.0-2.0)
[2023-05-20] MEDS: MIDAZOLAM DRIP 50 mg/50mL 50 ML IV SCH (07:30)
[2023-05-20] MEDS: PROPOFOL 100 ML IV SCH (07:30)
[2023-05-20 07:57] LABS: Eosinophils % (manual) 2 (0-7); Lymphocytes % (manual) 5 (10.0-50.0); Monocytes % (manual) 7 (0-12); Myelocytes % 2
[2023-05-20 07:58] LABS: Platelet Estimate Decreased
[2023-05-20] MEDS: VASOPRESSIN 20 UNITS in SODIUM CHL 0.9% 99 ML IV SCH ×2 (08:32→18:48)
[2023-05-20] MEDS: VANCOMYCIN 750mg/150ml 250 ML IV SCH (10:37)
[2023-05-20] MEDS: PANTOPRAZOLE 40 MG/10 ML VIAL INJ IV SCH ×2 (10:38→21:10)
[2023-05-20] MEDS: FUROSEMIDE 40 MG/4 ML VIAL IV SCH (10:39)
[2023-05-20] MEDS: SODIUM CHLOR 0.9% PF (SALINE LOCK) 10ML VIAL/SYR IV SCH ×2 (10:41→21:10)
[2023-05-20] MEDS: levoFLOXacin 250MG 50 ML IV SCH (10:41)
[2023-05-20] MEDS: CEFEPIME 2GM/50ML NS 50 ML IV SCH ×2 (10:41→21:10)
[2023-05-20] MEDS: fentaNYL Drip 2500mCg/250mlNS 250 ML IV SCH (11:15)
[2023-05-20] MEDS: NOREPINEPHRINE BITARTRATE 32 MG in SODIUM CHL 0.9% 218 ML IV SCH (12:07)
[2023-05-20] MEDS: PHENYLEPHRINE INJ 80 MG in SODIUM CHL 0.9% 242 ML IV SCH (15:00)
[2023-05-20] MEDS ORDERED: TPN PER PHARMACY IV NR ×10 (20:00)
[2023-05-20] MEDS: EPINEPHrine HCL 250 ML IV SCH (21:00)
[2023-05-21] VITALS (105 sets, daily range): BP systolic 85–126; BP diastolic 40–63; PULSE 92–110; RESP 19–41; TEMP 98–98.4; O2SAT 97–100
[2023-05-21] MEDS: IPRATROPIUM BROM 0.5 MG/2.5ML INH SOL NEB SCH ×4 (00:09→18:28)
[2023-05-21 04:04] LABS: Hemoglobin 7.8 g/dL (12.2-16.2)
[2023-05-21 04:07] LABS: Mean Corpuscular Hgb Conc. 32.4 g/dL (32.0-36.0); Mean Corpuscular Volume 92.6 fL (80.0-100.0); Red Blood Cells 2.59 10^6/uL (4.0-5.20)
[2023-05-21 04:19] LABS: Basophils % (manual) 0 (0.0-2.0); Blast Cells 0; Metamyelocytes % 0; Myelocytes % 0; Promyelocytes % 0; Reactive Lymphocytes 0
[2023-05-21 04:31] LABS: Alanine Aminotransferase 10 U/L (7-40); Albumin 2.7 g/dL (3.2-4.8); Alkaline Phosphatase 95 U/L (46-116); Anion Gap 10 (5-15); Aspartate Aminotransferase 9 U/L (13-40); BUN/Creatinine Ratio 26.3 (10.0-20.0); Bilirubin, Total 0.4 mg/dL (0.2-1.0); Blood Urea Nitrogen 41 mg/dL (9-23); Calcium 8.7 mg/dL (8.7-10.4); Carbon Dioxide 24 mmol/L (20-30); Chloride 108 mmol/L (98-107); Glucose 140 mg/dL (74-106); Magnesium 2.2 mg/dL (1.6-2.6); Phosphorus 3.2 mg/dL (2.4-5.1); Potassium 3.8 mmol/L (3.5-5.1); Sodium 142 mmol/L (136-145); Total Protein 5.2 g/dL (5.7-8.2)
[2023-05-21 05:06] LABS: Band Neutrophils % (manual) 6; Eosinophils % (manual) 1 (0-7); Lymphocytes % (manual) 4 (10.0-50.0); Monocytes % (manual) 4 (0-12); Platelet Estimate Decreased
[2023-05-21] MEDS: ACCU-CHEK COMFORT CURVE STRIP VI SCH ×4 (06:00→17:43)
[2023-05-21] MEDS: InsuLIN REG 1unit/0.01ml Soln (100units/ml) SC SCH ×4 (06:00→17:43)
[2023-05-21] MEDS: VASOPRESSIN 20 UNITS in SODIUM CHL 0.9% 99 ML IV SCH ×2 (06:43→17:53)
[2023-05-21] MEDS: PROPOFOL 100 ML IV SCH (07:30)
[2023-05-21] MEDS: MIDAZOLAM DRIP 50 mg/50mL 50 ML IV SCH (07:30)
[2023-05-21 08:30] LABS: Base Excess 1.8 mmol/L (-2.0-2.0)
[2023-05-21] MEDS: CEFEPIME 2GM/50ML NS 50 ML IV SCH ×2 (10:13→21:50)
[2023-05-21] MEDS: levoFLOXacin 250MG 50 ML IV SCH (10:13)
[2023-05-21] MEDS: FUROSEMIDE 40 MG/4 ML VIAL IV SCH (10:14)
[2023-05-21] MEDS: PANTOPRAZOLE 40 MG/10 ML VIAL INJ IV SCH ×2 (10:14→21:49)
[2023-05-21] MEDS: NOREPINEPHRINE BITARTRATE 32 MG in SODIUM CHL 0.9% 218 ML IV SCH (10:16)
[2023-05-21] MEDS: SODIUM CHLOR 0.9% PF (SALINE LOCK) 10ML VIAL/SYR IV SCH ×2 (10:18→21:46)
[2023-05-21] MEDS: PHENYLEPHRINE INJ 80 MG in SODIUM CHL 0.9% 242 ML IV SCH (15:00)
[2023-05-21] MEDS ORDERED: NOREPINEPHRINE BITARTRATE 32 MG in SODIUM CHL 0.9% 218 ML IV SCH (17:15)
[2023-05-21] MEDS: fentaNYL Drip 2500mCg/250mlNS 250 ML IV SCH (17:38)
[2023-05-21] MEDS: ALBUTEROL SULF 2.5 MG/0.5ML(0.5%) NEB SOLN NEB PRN (18:28)
[2023-05-21] MEDS ORDERED: POTASSIUM PHOSPHATE IV NR ×9 (20:00)
[2023-05-21] MEDS ORDERED: FAT EMULSION IV NR ×9 (20:00)
[2023-05-21] MEDS ORDERED: [UNRECOGNIZED DRUG - OTHER] IV NR ×9 (20:00)
[2023-05-21] MEDS ORDERED: POTASSIUM ACETATE IV NR ×9 (20:00)
[2023-05-21] MEDS: EPINEPHrine HCL 250 ML IV SCH (21:00)
[2023-05-21 22:35] LABS: Creatinine, Urine 38.79 mg/dL (30.0-125.0)
[2023-05-21 22:38] LABS: Protein, Urine 273.1 mg/dL (0.0-11.9); Urine Protein/Creatinine Ratio 7.04
[2023-05-22] VITALS (110 sets, daily range): BP systolic 92–134; BP diastolic 41–64; PULSE 89–109; RESP 17–31; TEMP 97.9–99; O2SAT 96–100
[2023-05-22] MEDS: IPRATROPIUM BROM 0.5 MG/2.5ML INH SOL NEB SCH ×4 (00:19→18:20)
[2023-05-22] MEDS: NOREPINEPHRINE BITARTRATE 32 MG in SODIUM CHL 0.9% 218 ML IV SCH (02:57)
[2023-05-22 04:01] LABS: Red Cell Distribution Width 16.6 % (11.8-14.3)
[2023-05-22 04:04] LABS: Hematocrit 24.3 % (36.0-46.0); Hemoglobin 7.8 g/dL (12.2-16.2); Mean Corpuscular Hemoglobin 29.7 pg (28.0-32.0); Mean Corpuscular Hgb Conc. 32.1 g/dL (32.0-36.0); Mean Corpuscular Volume 92.6 fL (80.0-100.0); Red Blood Cells 2.62 10^6/uL (4.0-5.20); White Blood Cell 15.2 10^3/uL (4.4-10.8)
[2023-05-22 04:12] LABS: Basophils % (manual) 0 (0.0-2.0); Blast Cells 0; Eosinophils % (manual) 0 (0-7); Metamyelocytes % 0; Myelocytes % 0; Promyelocytes % 0; Reactive Lymphocytes 0
[2023-05-22 04:16] LABS: Albumin 2.9 g/dL (3.2-4.8); Alkaline Phosphatase 160 U/L (46-116); Aspartate Aminotransferase 19 U/L (13-40); BUN/Creatinine Ratio 29.9 (10.0-20.0); Bilirubin, Total 0.5 mg/dL (0.2-1.0); Blood Urea Nitrogen 47 mg/dL (9-23); Calcium 8.8 mg/dL (8.5-10.1); Chloride 107 mmol/L (98-107); Glucose 132 mg/dL (74-106); Phosphorus 3.5 mg/dL (2.4-5.1); Potassium 4.3 mmol/L (3.5-5.1); Sodium 142 mmol/L (136-145); Total Protein 5.4 g/dL (5.7-8.2); Triglycerides 192 mg/dL (< 150)
[2023-05-22 04:23] LABS: Alanine Aminotransferase < 9 U/L (7-40)
[2023-05-22 04:28] LABS: Anion Gap 9 (5-15); Carbon Dioxide 26 mmol/L (20-30)
[2023-05-22 04:33] LABS: Magnesium 2.5 mg/dL (1.6-2.6)
[2023-05-22 05:00] LABS: Band Neutrophils % (manual) 2; Lymphocytes % (manual) 10 (10.0-50.0); Monocytes % (manual) 3 (0-12)
[2023-05-22] MEDS: VASOPRESSIN 20 UNITS in SODIUM CHL 0.9% 99 ML IV SCH ×2 (05:00→16:07)
[2023-05-22 05:02] LABS: Platelet Estimate Decreased
[2023-05-22] MEDS: ACCU-CHEK COMFORT CURVE STRIP VI SCH ×5 (05:17→17:58)
[2023-05-22] MEDS: InsuLIN REG 1unit/0.01ml Soln (100units/ml) SC SCH ×5 (05:25→17:58)
[2023-05-22] MEDS: PROPOFOL 100 ML IV SCH (07:30)
[2023-05-22] MEDS: MIDAZOLAM DRIP 50 mg/50mL 50 ML IV SCH (07:30)
[2023-05-22 07:35] LABS: Base Excess 0.8 mmol/L (-2.0-2.0)
[2023-05-22] MEDS: SODIUM CHLOR 0.9% PF (SALINE LOCK) 10ML VIAL/SYR IV SCH ×2 (10:00→21:24)
[2023-05-22] MEDS: VANCOMYCIN 750mg/150ml 250 ML IV SCH (10:01)
[2023-05-22] MEDS: PANTOPRAZOLE 40 MG/10 ML VIAL INJ IV SCH ×2 (10:06→21:24)
[2023-05-22] MEDS: FUROSEMIDE 40 MG/4 ML VIAL IV SCH (10:07)
[2023-05-22] MEDS: levoFLOXacin 250MG 50 ML IV SCH (11:14)
[2023-05-22] MEDS: CEFEPIME 2GM/50ML NS 50 ML IV SCH ×2 (13:03→21:24)
[2023-05-22] MEDS: ALBUTEROL SULF 2.5 MG/0.5ML(0.5%) NEB SOLN NEB PRN (13:15)
[2023-05-22] MEDS: PHENYLEPHRINE INJ 80 MG in SODIUM CHL 0.9% 242 ML IV SCH (15:00)
[2023-05-22] MEDS: fentaNYL Drip 2500mCg/250mlNS 250 ML IV SCH (17:56)
[2023-05-22] MEDS ORDERED: TPN PER PHARMACY IV NR ×10 (20:00)
[2023-05-22] MEDS: EPINEPHrine HCL 250 ML IV SCH (20:07)
[2023-05-23] VITALS (86 sets, daily range): BP systolic 68–172; BP diastolic 35–70; PULSE 96–144; RESP 22–44; TEMP 97.6–99.5; O2SAT 98–100
[2023-05-23] MEDS: IPRATROPIUM BROM 0.5 MG/2.5ML INH SOL NEB SCH ×4 (00:08→18:17)
[2023-05-23] MEDS: VASOPRESSIN 20 UNITS in SODIUM CHL 0.9% 99 ML IV SCH ×2 (02:32→14:21)
[2023-05-23 03:40] LABS: Hemoglobin 7.1 g/dL (12.2-16.2); White Blood Cell 16.8 10^3/uL (4.4-10.8)
[2023-05-23 03:44] LABS: Hematocrit 22.3 % (36.0-46.0); Mean Corpuscular Hemoglobin 29.5 pg (28.0-32.0); Mean Corpuscular Volume 92.2 fL (80.0-100.0); Red Blood Cells 2.42 10^6/uL (4.0-5.20); Red Cell Distribution Width 16.6 % (11.8-14.3)
[2023-05-23 03:56] LABS: Alanine Aminotransferase 11 U/L (7-40); Albumin 2.9 g/dL (3.2-4.8); Alkaline Phosphatase 214 U/L (46-116); Anion Gap 9 (5-15); Aspartate Aminotransferase 31 U/L (13-40); BUN/Creatinine Ratio 35.3 (10.0-20.0); Bilirubin, Total 0.5 mg/dL (0.2-1.0); Calcium 8.5 mg/dL (8.7-10.4); Carbon Dioxide 26 mmol/L (20-30); Chloride 107 mmol/L (98-107); Glucose 132 mg/dL (74-106); Magnesium 2.6 mg/dL (1.6-2.6); Phosphorus 4.1 mg/dL (2.4-5.1); Potassium 4.5 mmol/L (3.5-5.1); Sodium 142 mmol/L (136-145); Total Protein 5.5 g/dL (5.7-8.2)
[2023-05-23 03:57] LABS: Basophils % (manual) 0 (0.0-2.0); Blast Cells 0; Blood Urea Nitrogen 61 mg/dL (9-23); Eosinophils % (manual) 0 (0-7); Metamyelocytes % 0; Myelocytes % 0; Promyelocytes % 0; Reactive Lymphocytes 0
[2023-05-23 05:22] LABS: Anisocytosis Slight; Band Neutrophils % (manual) 7; Hypochromia Slight; Lymphocytes % (manual) 2 (10.0-50.0); Monocytes % (manual) 4 (0-12); Platelet Estimate Markedly Decreased
[2023-05-23 05:23] LABS: Target Cell FEW
[2023-05-23] MEDS: InsuLIN REG 1unit/0.01ml Soln (100units/ml) SC SCH ×3 (06:00→17:33)
[2023-05-23] MEDS: ALBUTEROL SULF 2.5 MG/0.5ML(0.5%) NEB SOLN NEB PRN ×3 (06:16→18:17)
[2023-05-23] MEDS: ACCU-CHEK COMFORT CURVE STRIP VI SCH ×3 (06:24→17:33)
[2023-05-23] MEDS: PROPOFOL 100 ML IV SCH ×2 (07:30→21:19)
[2023-05-23] MEDS: MIDAZOLAM DRIP 50 mg/50mL 50 ML IV SCH (07:30)
[2023-05-23 07:48] LABS: Base Excess 3.9 mmol/L (-2.0-2.0)
[2023-05-23] MEDS: levoFLOXacin 250MG 50 ML IV SCH (09:45)
[2023-05-23] MEDS: FUROSEMIDE 40 MG/4 ML VIAL IV SCH (09:45)
[2023-05-23] MEDS: PANTOPRAZOLE 40 MG/10 ML VIAL INJ IV SCH ×3 (09:45→23:59)
[2023-05-23] MEDS: CEFEPIME 2GM/50ML NS 50 ML IV SCH ×2 (09:48→22:51)
[2023-05-23] MEDS: SODIUM CHLOR 0.9% PF (SALINE LOCK) 10ML VIAL/SYR IV SCH ×2 (09:48→22:00)
[2023-05-23] MEDS: fentaNYL Drip 2500mCg/250mlNS 250 ML IV SCH (11:15)
[2023-05-23] MEDS: NOREPINEPHRINE BITARTRATE 32 MG in SODIUM CHL 0.9% 218 ML IV SCH (11:44)
[2023-05-23] MEDS: PHENYLEPHRINE INJ 80 MG in SODIUM CHL 0.9% 242 ML IV SCH (14:38)
[2023-05-23] MEDS: MORPHINE SULFATE INJ 2 MG/ml SYRG IV PRN (18:21)
[2023-05-23] MEDS ORDERED: TPN PER PHARMACY IV NR ×10 (20:00)
[2023-05-23] MEDS: EPINEPHrine HCL 250 ML IV SCH (21:00)
[2023-05-23] MEDS: LORazepam 2MG/ML-1ML VIAL IV PRN (21:08)
[2023-05-24] VITALS (103 sets, daily range): BP systolic 99–151; BP diastolic 37–58; PULSE 81–131; RESP 14–40; TEMP 97.5–101.4; O2SAT 95–100
[2023-05-24] MEDS: ACCU-CHEK COMFORT CURVE STRIP VI SCH ×4 (00:24→17:44)
[2023-05-24] MEDS: MORPHINE SULFATE INJ 2 MG/ml SYRG IV PRN (00:36)
[2023-05-24] MEDS: ALBUTEROL SULF 2.5 MG/0.5ML(0.5%) NEB SOLN NEB PRN ×4 (00:37→18:55)
[2023-05-24] MEDS: IPRATROPIUM BROM 0.5 MG/2.5ML INH SOL NEB SCH ×4 (00:37→18:55)
[2023-05-24] MEDS: VASOPRESSIN 20 UNITS in SODIUM CHL 0.9% 99 ML IV SCH ×3 (01:28→23:42)
[2023-05-24] MEDS: PROPOFOL 100 ML IV SCH ×5 (03:28→23:43)
[2023-05-24 04:19] LABS: Mean Corpuscular Hgb Conc. 31.5 g/dL (32.0-36.0)
[2023-05-24 04:22] LABS: Hematocrit 22.3 % (36.0-46.0); Red Blood Cells 2.42 10^6/uL (4.0-5.20); White Blood Cell 21.3 10^3/uL (4.4-10.8)
[2023-05-24 04:30] LABS: Alanine Aminotransferase 25 U/L (7-40); Albumin 2.9 g/dL (3.2-4.8); Alkaline Phosphatase 303 U/L (46-116); Anion Gap 10 (5-15); BUN/Creatinine Ratio 34.2 (10.0-20.0); Blood Urea Nitrogen 69 mg/dL (9-23); Calcium 8.7 mg/dL (8.7-10.4); Carbon Dioxide 25 mmol/L (20-30); Chloride 106 mmol/L (98-107); Glucose 143 mg/dL (74-106); Magnesium 2.7 mg/dL (1.6-2.6); Potassium 4.6 mmol/L (3.5-5.1); Sodium 141 mmol/L (136-145)
[2023-05-24 04:31] LABS: Aspartate Aminotransferase 61 U/L (13-40); Bilirubin, Total 0.6 mg/dL (0.2-1.0); Phosphorus 4.3 mg/dL (2.4-5.1); Total Protein 5.7 g/dL (5.7-8.2)
[2023-05-24 04:48] LABS: Basophils % (manual) 0 (0.0-2.0); Blast Cells 0; Eosinophils % (manual) 0 (0-7); Metamyelocytes % 0; Myelocytes % 0; Promyelocytes % 0; Reactive Lymphocytes 0
[2023-05-24] MEDS ORDERED: ACETAMINOPHEN 650 MG RECT SUPP PR PRN (05:15)
[2023-05-24] MEDS: InsuLIN REG 1unit/0.01ml Soln (100units/ml) SC SCH ×4 (06:29→17:43)
[2023-05-24 07:03] LABS: Band Neutrophils % (manual) 6; Lymphocytes % (manual) 5 (10.0-50.0); Monocytes % (manual) 7 (0-12); Platelet Estimate Decreased
[2023-05-24 07:04] LABS: Large Platelets FEW; Stomatocytes Few
[2023-05-24] MEDS: MIDAZOLAM DRIP 50 mg/50mL 50 ML IV SCH (07:30)
[2023-05-24 07:56] LABS: Base Excess 1.6 mmol/L (-2.0-2.0)
[2023-05-24] MEDS: VANCOMYCIN 750mg/150ml 250 ML IV SCH (09:27)
[2023-05-24] MEDS: fentaNYL Drip 2500mCg/250mlNS 250 ML IV SCH (09:30)
[2023-05-24 10:03] LABS: Hematocrit 25.2 % (36.0-46.0)
[2023-05-24 10:47] LABS: Hemoglobin 6.5 g/dL (12.2-16.2)
[2023-05-24] MEDS: SODIUM CHLOR 0.9% PF (SALINE LOCK) 10ML VIAL/SYR IV SCH ×2 (11:01→21:59)
[2023-05-24] MEDS: FUROSEMIDE 40 MG/4 ML VIAL IV SCH (11:01)
[2023-05-24] MEDS: levoFLOXacin 250MG 50 ML IV SCH (11:01)
[2023-05-24] MEDS: PANTOPRAZOLE 40 MG/10 ML VIAL INJ IV SCH (11:02)
[2023-05-24] MEDS: CEFEPIME 2GM/50ML NS 50 ML IV SCH (11:21)
[2023-05-24] MEDS ORDERED: MEROPENEM 1GM IVPB 50 ML IV ONE (14:30)
[2023-05-24] MEDS ORDERED: DexmedeTOMIDine 200 MCG in D5W 5% 48 ML IV SCH (14:30)
[2023-05-24] MEDS ORDERED: FLUCONAZOLE 200MG/100ML 100 ML IV ONE (14:30)
[2023-05-24] MEDS: PHENYLEPHRINE INJ 80 MG in SODIUM CHL 0.9% 242 ML IV SCH (15:00)
[2023-05-24] MEDS: NOREPINEPHRINE BITARTRATE 32 MG in SODIUM CHL 0.9% 218 ML IV SCH (18:05)
[2023-05-24] MEDS ORDERED: TPN PER PHARMACY IV NR ×9 (20:00)
[2023-05-24] MEDS: EPINEPHrine HCL 250 ML IV SCH (21:00)
[2023-05-24] MEDS: MEROPENEM 1GM IVPB 50 ML IV SCH (21:59)
[2023-05-24] MEDS ORDERED: MEROPENEM 1GM IVPB 50 ML IV SCH (22:00)
[2023-05-25] VITALS (111 sets, daily range): BP systolic 78–140; BP diastolic 32–60; PULSE 78–121; RESP 16–31; TEMP 98–98.8; O2SAT 99–100
[2023-05-25] MEDS: IPRATROPIUM BROM 0.5 MG/2.5ML INH SOL NEB SCH ×5 (00:33→23:48)
[2023-05-25] MEDS: ALBUTEROL SULF 2.5 MG/0.5ML(0.5%) NEB SOLN NEB PRN ×5 (00:33→23:48)
[2023-05-25 04:19] LABS: Hematocrit 27.1 % (36.0-46.0); Hemoglobin 8.7 g/dL (12.2-16.2); Mean Corpuscular Hemoglobin 28.9 pg (28.0-32.0); Mean Corpuscular Hgb Conc. 32.2 g/dL (32.0-36.0); Mean Corpuscular Volume 89.7 fL (80.0-100.0); Red Blood Cells 3.02 10^6/uL (4.0-5.20); White Blood Cell 19.8 10^3/uL (4.4-10.8)
[2023-05-25 04:29] LABS: Basophils % (manual) 0 (0.0-2.0); Blast Cells 0; Promyelocytes % 0; Reactive Lymphocytes 0
[2023-05-25 04:32] LABS: Alanine Aminotransferase 17 U/L (7-40); Albumin 2.9 g/dL (3.2-4.8); Alkaline Phosphatase 234 U/L (46-116); Anion Gap 10 (5-15); Aspartate Aminotransferase 26 U/L (13-40); BUN/Creatinine Ratio 34.3 (10.0-20.0); Bilirubin, Total 0.6 mg/dL (0.2-1.0); Blood Urea Nitrogen 74 mg/dL (9-23); Calcium 8.7 mg/dL (8.7-10.4); Carbon Dioxide 23 mmol/L (20-30); Chloride 106 mmol/L (98-107); Glucose 119 mg/dL (74-106); Magnesium 2.6 mg/dL (1.6-2.6); Phosphorus 5.5 mg/dL (2.4-5.1); Potassium 4.3 mmol/L (3.5-5.1); Sodium 139 mmol/L (136-145)
[2023-05-25 04:33] LABS: Total Protein 5.7 g/dL (5.7-8.2)
[2023-05-25] MEDS: InsuLIN REG 1unit/0.01ml Soln (100units/ml) SC SCH ×4 (06:00→18:00)
[2023-05-25] MEDS: ACCU-CHEK COMFORT CURVE STRIP VI SCH ×4 (06:05→18:04)
[2023-05-25] MEDS: PROPOFOL 100 ML IV SCH (06:56)
[2023-05-25] MEDS: MIDAZOLAM DRIP 50 mg/50mL 50 ML IV SCH (07:30)
[2023-05-25 07:39] LABS: Base Excess -2.7 mmol/L (-2.0-2.0)
[2023-05-25 08:01] LABS: Band Neutrophils % (manual) 12; Eosinophils % (manual) 1 (0-7); Lymphocytes % (manual) 3 (10.0-50.0); Metamyelocytes % 5; Monocytes % (manual) 5 (0-12); Myelocytes % 1
[2023-05-25 08:02] LABS: Platelet Estimate Decreased
[2023-05-25] MEDS: MORPHINE SULFATE INJ 2 MG/ml SYRG IV PRN ×2 (09:43→22:14)
[2023-05-25] MEDS: MEROPENEM 1GM IVPB 50 ML IV SCH ×2 (10:04→21:47)
[2023-05-25] MEDS: levoFLOXacin 250MG 50 ML IV SCH (10:04)
[2023-05-25] MEDS: PANTOPRAZOLE 40 MG/10 ML VIAL INJ IV SCH ×2 (10:04→21:46)
[2023-05-25] MEDS: SODIUM CHLOR 0.9% PF (SALINE LOCK) 10ML VIAL/SYR IV SCH ×2 (10:05→22:15)
[2023-05-25] MEDS: FUROSEMIDE 40 MG/4 ML VIAL IV SCH (10:05)
[2023-05-25] MEDS: VASOPRESSIN 20 UNITS in SODIUM CHL 0.9% 99 ML IV SCH ×2 (10:49→21:56)
[2023-05-25] MEDS: FLUCONAZOLE 200MG/100ML 100 ML IV SCH (11:13)
[2023-05-25] MEDS: fentaNYL Drip 2500mCg/250mlNS 250 ML IV SCH (11:15)
[2023-05-25] MEDS: NOREPINEPHRINE BITARTRATE 32 MG in SODIUM CHL 0.9% 218 ML IV SCH (12:15)
[2023-05-25 13:00] LABS: Base Excess -1.9 mmol/L (-2.0-2.0)
[2023-05-25] MEDS ORDERED: TPN PER PHARMACY IV NR ×9 (20:00)
[2023-05-25] MEDS: EPINEPHrine HCL 250 ML IV SCH (21:00)
[2023-05-25] MEDS: LORazepam 2MG/ML-1ML VIAL IV PRN (23:02)
[2023-05-26] VITALS (103 sets, daily range): BP systolic 87–133; BP diastolic 33–70; PULSE 97–111; RESP 12–25; TEMP 97.6–98.8; O2SAT 83–100
[2023-05-26 04:09] LABS: Hematocrit 24.5 % (36.0-46.0); Mean Corpuscular Hemoglobin 29.2 pg (28.0-32.0); Mean Corpuscular Hgb Conc. 32.6 g/dL (32.0-36.0); Mean Corpuscular Volume 89.6 fL (80.0-100.0); Red Blood Cells 2.74 10^6/uL (4.0-5.20); Red Cell Distribution Width 17.6 % (11.8-14.3); White Blood Cell 14.8 10^3/uL (4.4-10.8)
[2023-05-26 04:18] LABS: Basophils % (manual) 0 (0.0-2.0); Blast Cells 0; Eosinophils % (manual) 0 (0-7); Promyelocytes % 0; Reactive Lymphocytes 0
[2023-05-26 04:22] LABS: Alanine Aminotransferase 16 U/L (7-40); Albumin 2.8 g/dL (3.2-4.8); Alkaline Phosphatase 220 U/L (46-116); Anion Gap 11 (5-15); Aspartate Aminotransferase 26 U/L (13-40); BUN/Creatinine Ratio 29.9 (10.0-20.0); Blood Urea Nitrogen 78 mg/dL (9-23); Calcium 8.9 mg/dL (8.7-10.4); Carbon Dioxide 22 mmol/L (20-30); Chloride 108 mmol/L (98-107); Glucose 89 mg/dL (74-106); Magnesium 2.4 mg/dL (1.6-2.6); Potassium 3.5 mmol/L (3.5-5.1); Sodium 141 mmol/L (136-145)
[2023-05-26 04:23] LABS: Bilirubin, Total 0.6 mg/dL (0.2-1.0); Phosphorus 4.6 mg/dL (2.4-5.1); Total Protein 5.5 g/dL (5.7-8.2)
[2023-05-26] MEDS: InsuLIN REG 1unit/0.01ml Soln (100units/ml) SC SCH ×5 (06:00→23:48)
[2023-05-26] MEDS: ACCU-CHEK COMFORT CURVE STRIP VI SCH ×5 (06:00→23:48)
[2023-05-26] MEDS: IPRATROPIUM BROM 0.5 MG/2.5ML INH SOL NEB SCH ×4 (06:14→23:50)
[2023-05-26 07:03] LABS: Anisocytosis Slight; Band Neutrophils % (manual) 2; Lymphocytes % (manual) 4 (10.0-50.0); Metamyelocytes % 1; Monocytes % (manual) 5 (0-12); Myelocytes % 1; Platelet Estimate Decreased
[2023-05-26 07:04] LABS: Large Platelets FEW
[2023-05-26] MEDS: MIDAZOLAM DRIP 50 mg/50mL 50 ML IV SCH (07:30)
[2023-05-26] MEDS: PROPOFOL 100 ML IV SCH (07:30)
[2023-05-26] MEDS: VASOPRESSIN 20 UNITS in SODIUM CHL 0.9% 99 ML IV SCH (09:03)
[2023-05-26] MEDS: SODIUM CHLORIDE 0.9% 1,000 ML IV SCH (09:47)
[2023-05-26] MEDS: PANTOPRAZOLE 40 MG/10 ML VIAL INJ IV SCH ×2 (10:04→21:50)
[2023-05-26] MEDS: FUROSEMIDE 40 MG/4 ML VIAL IV SCH (10:04)
[2023-05-26] MEDS: FLUCONAZOLE 200MG/100ML 100 ML IV SCH (10:05)
[2023-05-26] MEDS: MEROPENEM 1GM IVPB 50 ML IV SCH ×2 (10:07→21:50)
[2023-05-26] MEDS: SODIUM CHLOR 0.9% PF (SALINE LOCK) 10ML VIAL/SYR IV SCH ×2 (10:08→21:50)
[2023-05-26] MEDS: levoFLOXacin 250MG 50 ML IV SCH (10:08)
[2023-05-26] MEDS ORDERED: POTASSIUM CHL 20MEQ/100ML 100 ML IV ONE (11:15)
[2023-05-26 13:36] LABS: INR 1.19 (0.9-1.15); Partial Thromboplastin Time 36.5 SEC (24.5-34.5); Prothrombin Time 12.4 sec (9.3-11.8)
[2023-05-26] MEDS ORDERED: TPN PER PHARMACY IV NR ×8 (20:00)
[2023-05-26] MEDS: NOREPINEPHRINE BITARTRATE 32 MG in SODIUM CHL 0.9% 218 ML IV SCH (21:51)
[2023-05-27] VITALS (84 sets, daily range): BP systolic 99–145; BP diastolic 20–60; PULSE 93–112; RESP 13–46; TEMP 97.6–98.2; O2SAT 87–100
[2023-05-27] MEDS: SODIUM CHLORIDE 0.9% 1,000 ML IV SCH ×2 (02:18→11:25)
[2023-05-27 03:49] LABS: Basophils # (auto) 0 10 ^3/uL (0-0.2); Basophils % (auto) 0.3 % (0.0-2.0); Eosinophils # (auto) 0.1 10 ^3/uL (0-0.8); Lymphocytes # (auto) 0.3 10 ^3/uL (0.4-5.4); Monocytes # (auto) 0.7 10 ^3/uL (0-1.3); Neutrophils % (auto) 90.6 % (37.0-80.0); Red Cell Distribution Width 17.5 % (11.8-14.3)
[2023-05-27 03:51] LABS: Eosinophils % (auto) 0.9 % (0.0-7.0); Hematocrit 24.6 % (36.0-46.0); Hemoglobin 7.9 g/dL (12.2-16.2); Lymphocytes % (auto) 2.6 % (10.0-50.0); Mean Corpuscular Hemoglobin 28.8 pg (28.0-32.0); Mean Corpuscular Hgb Conc. 32.1 g/dL (32.0-36.0); Mean Corpuscular Volume 89.5 fL (80.0-100.0); Monocytes % (auto) 5.6 % (0.0-12.0); Neutrophils # (auto) 11.4 10 ^3/uL (1.6-8.6); Red Blood Cells 2.75 10^6/uL (4.0-5.20); White Blood Cell 12.6 10^3/uL (4.4-10.8)
[2023-05-27 04:04] LABS: Alanine Aminotransferase 13 U/L (7-40); Albumin 2.8 g/dL (3.2-4.8); Alkaline Phosphatase 197 U/L (46-116); Anion Gap 11 (5-15); Aspartate Aminotransferase 22 U/L (13-40); BUN/Creatinine Ratio 30.4 (10.0-20.0); Calcium 8.9 mg/dL (8.7-10.4); Carbon Dioxide 22 mmol/L (20-30); Chloride 109 mmol/L (98-107); Glucose 110 mg/dL (74-106); Magnesium 2.1 mg/dL (1.6-2.6); Phosphorus 3.7 mg/dL (2.4-5.1); Potassium 3.3 mmol/L (3.5-5.1); Sodium 142 mmol/L (136-145)
[2023-05-27 04:05] LABS: Bilirubin, Total 0.4 mg/dL (0.2-1.0); Total Protein 5.5 g/dL (5.7-8.2)
[2023-05-27 04:09] LABS: Blood Urea Nitrogen 80 mg/dL (9-23)
[2023-05-27] MEDS: ACCU-CHEK COMFORT CURVE STRIP VI SCH ×3 (05:37→16:41)
[2023-05-27] MEDS: InsuLIN REG 1unit/0.01ml Soln (100units/ml) SC SCH ×3 (05:38→16:42)
[2023-05-27] MEDS: IPRATROPIUM BROM 0.5 MG/2.5ML INH SOL NEB SCH ×4 (06:24→23:29)
[2023-05-27] MEDS ORDERED: POTASSIUM CHL 20MEQ/100ML 100 ML IV ONE (06:45)
[2023-05-27] MEDS ORDERED: SODIUM CHLORIDE 0.9% 1,000 ML IV ONE ×2 (08:00→08:15)
[2023-05-27] MEDS: MEROPENEM 1GM IVPB 50 ML IV SCH ×2 (08:19→21:42)
[2023-05-27] MEDS: levoFLOXacin 250MG 50 ML IV SCH (08:19)
[2023-05-27] MEDS: PANTOPRAZOLE 40 MG/10 ML VIAL INJ IV SCH ×2 (08:19→21:42)
[2023-05-27] MEDS: FLUCONAZOLE 200MG/100ML 100 ML IV SCH (08:19)
[2023-05-27] MEDS: SODIUM CHLOR 0.9% PF (SALINE LOCK) 10ML VIAL/SYR IV SCH ×2 (08:56→21:42)
[2023-05-27] MEDS: NOREPINEPHRINE BITARTRATE 32 MG in SODIUM CHL 0.9% 218 ML IV SCH (09:26)
[2023-05-27] MEDS: POTASSIUM CHL 20MEQ/100ML 100 ML IV SCH ×2 (10:41→12:13)
[2023-05-27] MEDS ORDERED: HEPARIN SODIUM (PORCINE) 5000 UNITS/ML 1ML VIAL IV ONE (12:00)
[2023-05-27] MEDS ORDERED: HEPARIN DRIP/D5W 100UNITS/ML 250 ML IV SCH ×2 (12:00→21:45)
[2023-05-27 12:51] LABS: INR 1.14 (0.9-1.15); Prothrombin Time 11.9 sec (9.3-11.8)
[2023-05-27] MEDS: ALBUTEROL SULF 2.5 MG/0.5ML(0.5%) NEB SOLN NEB PRN ×2 (18:23→23:29)
[2023-05-27 19:12] LABS: INR 1.12 (0.9-1.15); Partial Thromboplastin Time 47.8 SEC (24.5-34.5); Prothrombin Time 11.7 sec (9.3-11.8)
[2023-05-27] MEDS ORDERED: TPN PER PHARMACY IV NR ×10 (20:00)
[2023-05-28] VITALS (56 sets, daily range): BP systolic 97–140; BP diastolic 33–92; PULSE 91–111; RESP 12–28; TEMP 97.9–98.2; O2SAT 85–100
[2023-05-28] MEDS: ACCU-CHEK COMFORT CURVE STRIP VI SCH ×5 (00:22→23:13)
[2023-05-28] MEDS: MORPHINE SULFATE INJ 2 MG/ml SYRG IV PRN (00:37)
[2023-05-28 04:22] LABS: Basophils # (auto) 0.1 10 ^3/uL (0-0.2); Basophils % (auto) 0.6 % (0.0-2.0); Eosinophils # (auto) 0.1 10 ^3/uL (0-0.8); Hemoglobin 7.8 g/dL (12.2-16.2); Lymphocytes # (auto) 0.5 10 ^3/uL (0.4-5.4); Monocytes # (auto) 0.7 10 ^3/uL (0-1.3); Monocytes % (auto) 6.8 % (0.0-12.0); Neutrophils # (auto) 8.8 10 ^3/uL (1.6-8.6)
[2023-05-28 04:26] LABS: Eosinophils % (auto) 1.4 % (0.0-7.0); Hematocrit 23.4 % (36.0-46.0); Lymphocytes % (auto) 4.9 % (10.0-50.0); Mean Corpuscular Hemoglobin 30.1 pg (28.0-32.0); Mean Corpuscular Hgb Conc. 33.4 g/dL (32.0-36.0); Mean Corpuscular Volume 90.1 fL (80.0-100.0); Neutrophils % (auto) 86.3 % (37.0-80.0); Red Cell Distribution Width 17.8 % (11.8-14.3); White Blood Cell 10.2 10^3/uL (4.4-10.8)
[2023-05-28 04:43] LABS: Alanine Aminotransferase 11 U/L (7-40); Albumin 2.7 g/dL (3.2-4.8); Alkaline Phosphatase 196 U/L (46-116); Aspartate Aminotransferase 22 U/L (13-40); BUN/Creatinine Ratio 29.8 (10.0-20.0); Blood Urea Nitrogen 75 mg/dL (9-23); Calcium 8.7 mg/dL (8.7-10.4); Chloride 111 mmol/L (98-107); Magnesium 1.9 mg/dL (1.6-2.6); Phosphorus 2.9 mg/dL (2.4-5.1); Potassium 3.7 mmol/L (3.5-5.1); Sodium 142 mmol/L (136-145)
[2023-05-28 04:44] LABS: Bilirubin, Total 0.3 mg/dL (0.2-1.0); Total Protein 5.4 g/dL (5.7-8.2)
[2023-05-28 04:56] LABS: Glucose 105 mg/dL (74-106)
[2023-05-28 05:40] LABS: Anion Gap 11 (5-15); Carbon Dioxide 20 mmol/L (20-30)
[2023-05-28] MEDS: SODIUM CHLORIDE 0.9% 1,000 ML IV SCH (05:41)
[2023-05-28] MEDS: InsuLIN REG 1unit/0.01ml Soln (100units/ml) SC SCH ×5 (05:41→23:13)
[2023-05-28] MEDS: IPRATROPIUM BROM 0.5 MG/2.5ML INH SOL NEB SCH ×3 (05:56→20:24)
[2023-05-28] MEDS: PANTOPRAZOLE 40 MG/10 ML VIAL INJ IV SCH ×2 (07:29→21:42)
[2023-05-28] MEDS: FLUCONAZOLE 200MG/100ML 100 ML IV SCH (07:29)
[2023-05-28] MEDS: MEROPENEM 1GM IVPB 50 ML IV SCH ×2 (07:29→21:42)
[2023-05-28] MEDS: SODIUM CHLOR 0.9% PF (SALINE LOCK) 10ML VIAL/SYR IV SCH ×2 (07:29→21:43)
[2023-05-28] MEDS ORDERED: LIDOCAINE 2%HCL (LOCAL ANESTH.) INJ 20ML MDV ONE (11:12)
[2023-05-28] MEDS ORDERED: IODIXANOL 320MG/ML 100ML BTL IV ONE (11:12)
[2023-05-28] MEDS: NOREPINEPHRINE BITARTRATE 32 MG in SODIUM CHL 0.9% 218 ML IV SCH (11:25)
[2023-05-28] MEDS ORDERED: fentaNYL CITRATE 100 MCG/2 ML VL ONE (11:26)
[2023-05-28] MEDS ORDERED: MIDAZOLAM HCL 2MG/2ML 2ml VIAL (1mg/ml) ONE ×2 (11:27→12:56)
[2023-05-28] MEDS ORDERED: FUROSEMIDE 40 MG/4 ML VIAL IV ONE (15:45)
[2023-05-28] MEDS ORDERED: TPN PER PHARMACY IV NR ×10 (20:00)
[2023-05-28] MEDS: ALBUTEROL SULF 2.5 MG/0.5ML(0.5%) NEB SOLN NEB PRN (20:24)
[2023-05-28] MEDS ORDERED: ENOXAPARIN SOD 100 MG/1 ML SYRINGE SC SCH (22:00)
[2023-05-29] VITALS (35 sets, daily range): BP systolic 103–146; BP diastolic 43–65; PULSE 87–121; RESP 10–29; TEMP 97.7–98.6; O2SAT 95–100
[2023-05-29] MEDS: IPRATROPIUM BROM 0.5 MG/2.5ML INH SOL NEB SCH ×4 (01:02→18:12)
[2023-05-29] MEDS: ALBUTEROL SULF 2.5 MG/0.5ML(0.5%) NEB SOLN NEB PRN ×4 (01:02→18:12)
[2023-05-29 04:03] LABS: Albumin 2.8 g/dL (3.2-4.8); Alkaline Phosphatase 184 U/L (46-116); BUN/Creatinine Ratio 28.3 (10.0-20.0); Blood Urea Nitrogen 69 mg/dL (9-23); Calcium 9.2 mg/dL (8.5-10.1); Chloride 112 mmol/L (98-107); Glucose 106 mg/dL (74-106); Potassium 3.7 mmol/L (3.5-5.1); Sodium 143 mmol/L (136-145)
[2023-05-29 04:04] LABS: Bilirubin, Total 0.3 mg/dL (0.2-1.0); Total Protein 5.6 g/dL (5.7-8.2)
[2023-05-29] MEDS: InsuLIN REG 1unit/0.01ml Soln (100units/ml) SC SCH ×3 (05:29→18:00)
[2023-05-29] MEDS: ACCU-CHEK COMFORT CURVE STRIP VI SCH ×3 (05:29→18:23)
[2023-05-29 05:49] LABS: Alanine Aminotransferase 13 U/L (7-40); Aspartate Aminotransferase 27 U/L (13-40)
[2023-05-29 06:28] LABS: Magnesium 1.8 mg/dL (1.6-2.6)
[2023-05-29 06:29] LABS: Anion Gap 10 (5-15); Carbon Dioxide 21 mmol/L (20-30)
[2023-05-29] MEDS: PANTOPRAZOLE 40 MG/10 ML VIAL INJ IV SCH ×2 (09:46→22:21)
[2023-05-29] MEDS: FLUCONAZOLE 200MG/100ML 100 ML IV SCH (09:46)
[2023-05-29] MEDS: MEROPENEM 1GM IVPB 50 ML IV SCH ×2 (09:47→22:22)
[2023-05-29] MEDS: SODIUM CHLOR 0.9% PF (SALINE LOCK) 10ML VIAL/SYR IV SCH ×2 (09:47→22:21)
[2023-05-29] MEDS: NOREPINEPHRINE BITARTRATE 32 MG in SODIUM CHL 0.9% 218 ML IV SCH (12:15)
[2023-05-29] MEDS: MORPHINE SULFATE INJ 2 MG/ml SYRG IV PRN ×2 (14:26→19:10)
[2023-05-29] MEDS ORDERED: TPN PER PHARMACY IV NR ×9 (20:00)
[2023-05-30] VITALS (32 sets, daily range): BP systolic 124–156; BP diastolic 51–90; PULSE 82–114; RESP 13–26; TEMP 97.7–98.7; O2SAT 95–100
[2023-05-30] MEDS: IPRATROPIUM BROM 0.5 MG/2.5ML INH SOL NEB SCH ×4 (00:07→18:36)
[2023-05-30] MEDS: ALBUTEROL SULF 2.5 MG/0.5ML(0.5%) NEB SOLN NEB PRN ×2 (00:07→18:36)
[2023-05-30] MEDS: ACCU-CHEK COMFORT CURVE STRIP VI SCH ×5 (01:11→23:41)
[2023-05-30 03:57] LABS: Basophils # (auto) 0.1 10 ^3/uL (0-0.2); Eosinophils # (auto) 0.1 10 ^3/uL (0-0.8); Hemoglobin 7.9 g/dL (12.2-16.2); Lymphocytes # (auto) 0.6 10 ^3/uL (0.4-5.4); Red Cell Distribution Width 17.1 % (11.8-14.3); White Blood Cell 9.5 10^3/uL (4.4-10.8)
[2023-05-30 04:01] LABS: Basophils % (auto) 0.6 % (0.0-2.0); Eosinophils % (auto) 1.1 % (0.0-7.0); Hematocrit 23.8 % (36.0-46.0); Lymphocytes % (auto) 5.9 % (10.0-50.0); Mean Corpuscular Hemoglobin 29.4 pg (28.0-32.0); Mean Corpuscular Volume 88.9 fL (80.0-100.0); Monocytes % (auto) 10.7 % (0.0-12.0); Neutrophils # (auto) 7.7 10 ^3/uL (1.6-8.6); Neutrophils % (auto) 81.7 % (37.0-80.0); Red Blood Cells 2.68 10^6/uL (4.0-5.20)
[2023-05-30 04:09] LABS: Chloride 112 mmol/L (98-107); Potassium 3.8 mmol/L (3.5-5.1); Sodium 143 mmol/L (136-145)
[2023-05-30 04:10] LABS: Anion Gap 8 (5-15); Carbon Dioxide 23 mmol/L (20-30)
[2023-05-30] MEDS: MORPHINE SULFATE INJ 2 MG/ml SYRG IV PRN ×3 (04:14→23:41)
[2023-05-30 04:15] LABS: Blood Urea Nitrogen 64 mg/dL (9-23); GFR African American 27 mL/min; GFR Non-African American 23 mL/min; Glucose 122 mg/dL (74-106); Triglycerides 175 mg/dL (< 150)
[2023-05-30 04:17] LABS: Albumin 2.8 g/dL (3.2-4.8); Phosphorus 3.3 mg/dL (2.4-5.1)
[2023-05-30 04:42] LABS: Magnesium 1.7 mg/dL (1.6-2.6)
[2023-05-30] MEDS: InsuLIN REG 1unit/0.01ml Soln (100units/ml) SC SCH ×5 (06:00→23:45)
[2023-05-30] MEDS: PANTOPRAZOLE 40 MG/10 ML VIAL INJ IV SCH ×2 (09:52→20:46)
[2023-05-30] MEDS: MEROPENEM 1GM IVPB 50 ML IV SCH ×2 (09:52→20:46)
[2023-05-30] MEDS: FLUCONAZOLE 200MG/100ML 100 ML IV SCH (09:52)
[2023-05-30] MEDS: SODIUM CHLOR 0.9% PF (SALINE LOCK) 10ML VIAL/SYR IV SCH ×2 (09:52→20:46)
[2023-05-30] MEDS: FUROSEMIDE 40 MG/4 ML VIAL IV SCH (11:39)
[2023-05-30] MEDS: NOREPINEPHRINE BITARTRATE 32 MG in SODIUM CHL 0.9% 218 ML IV SCH (12:15)
[2023-05-30] MEDS ORDERED: TPN PER PHARMACY IV NR ×9 (20:00)
[2023-05-30] MEDS ORDERED: ENOXAPARIN SOD 100 MG/1 ML SYRINGE SC SCH ×2 (22:00)
[2023-05-31] VITALS (33 sets, daily range): BP systolic 113–153; BP diastolic 49–70; PULSE 86–116; RESP 14–31; TEMP 97.8–98.4; O2SAT 92–100
[2023-05-31] MEDS: IPRATROPIUM BROM 0.5 MG/2.5ML INH SOL NEB SCH ×4 (00:25→18:32)
[2023-05-31] MEDS: ALBUTEROL SULF 2.5 MG/0.5ML(0.5%) NEB SOLN NEB PRN ×3 (00:25→18:32)
[2023-05-31] MEDS: MORPHINE SULFATE INJ 2 MG/ml SYRG IV PRN ×4 (03:24→21:07)
[2023-05-31 03:43] LABS: Basophils # (auto) 0.1 10 ^3/uL (0-0.2); Basophils % (auto) 0.6 % (0.0-2.0); Eosinophils # (auto) 0.1 10 ^3/uL (0-0.8); Hemoglobin 8.3 g/dL (12.2-16.2); Lymphocytes # (auto) 0.6 10 ^3/uL (0.4-5.4); Mean Corpuscular Volume 88.8 fL (80.0-100.0); White Blood Cell 10.6 10^3/uL (4.4-10.8)
[2023-05-31 03:45] LABS: Eosinophils % (auto) 1.2 % (0.0-7.0); Hematocrit 25.2 % (36.0-46.0); Lymphocytes % (auto) 6.1 % (10.0-50.0); Mean Corpuscular Hemoglobin 29.2 pg (28.0-32.0); Mean Corpuscular Hgb Conc. 32.9 g/dL (32.0-36.0); Monocytes % (auto) 9.7 % (0.0-12.0); Neutrophils # (auto) 8.7 10 ^3/uL (1.6-8.6); Neutrophils % (auto) 82.4 % (37.0-80.0); Red Blood Cells 2.84 10^6/uL (4.0-5.20); Red Cell Distribution Width 16.7 % (11.8-14.3)
[2023-05-31 03:56] LABS: Albumin 2.9 g/dL (3.2-4.8); Alkaline Phosphatase 179 U/L (46-116); Anion Gap 7 (5-15); Aspartate Aminotransferase 24 U/L (13-40); Blood Urea Nitrogen 65 mg/dL (9-23); Calcium 8.8 mg/dL (8.7-10.4); Carbon Dioxide 23 mmol/L (20-30); Chloride 112 mmol/L (98-107); Glucose 147 mg/dL (74-106); Magnesium 1.8 mg/dL (1.6-2.6); Potassium 3.7 mmol/L (3.5-5.1); Sodium 142 mmol/L (136-145)
[2023-05-31 03:57] LABS: Bilirubin, Total 0.4 mg/dL (0.2-1.0); Total Protein 5.6 g/dL (5.7-8.2)
[2023-05-31 04:03] LABS: Alanine Aminotransferase < 9 U/L (7-40)
[2023-05-31] MEDS: ACCU-CHEK COMFORT CURVE STRIP VI SCH ×4 (06:00→23:50)
[2023-05-31] MEDS: InsuLIN REG 1unit/0.01ml Soln (100units/ml) SC SCH ×4 (06:00→23:50)
[2023-05-31] MEDS ORDERED: FUROSEMIDE 40 MG/4 ML VIAL IV SCH (10:00)
[2023-05-31] MEDS: SODIUM CHLOR 0.9% PF (SALINE LOCK) 10ML VIAL/SYR IV SCH ×2 (10:28→21:18)
[2023-05-31] MEDS: FUROSEMIDE 40 MG/4 ML VIAL IV SCH (10:28)
[2023-05-31] MEDS: MEROPENEM 1GM IVPB 50 ML IV SCH ×2 (10:28→21:07)
[2023-05-31] MEDS: PANTOPRAZOLE 40 MG/10 ML VIAL INJ IV SCH ×2 (10:28→21:07)
[2023-05-31] MEDS: FLUCONAZOLE 200MG/100ML 100 ML IV SCH (10:32)
[2023-05-31] MEDS: NOREPINEPHRINE BITARTRATE 32 MG in SODIUM CHL 0.9% 218 ML IV SCH (12:15)
[2023-05-31] MEDS ORDERED: ATROPINE SULFATE 1 MG/1 ML VIAL ONE (13:40)
[2023-05-31] MEDS: ENOXAPARIN SOD 100 MG/1 ML SYRINGE SC SCH (18:05)
[2023-05-31] MEDS ORDERED: TPN PER PHARMACY IV NR ×9 (20:00)
[2023-06-01] VITALS (32 sets, daily range): BP systolic 100–150; BP diastolic 43–69; PULSE 84–120; RESP 15–28; TEMP 98.1–98.4; O2SAT 94–100
[2023-06-01] MEDS: IPRATROPIUM BROM 0.5 MG/2.5ML INH SOL NEB SCH ×4 (00:28→18:42)
[2023-06-01] MEDS: ALBUTEROL SULF 2.5 MG/0.5ML(0.5%) NEB SOLN NEB PRN ×4 (00:28→18:42)
[2023-06-01 04:23] LABS: Basophils # (auto) 0.1 10 ^3/uL (0-0.2); Basophils % (auto) 0.6 % (0.0-2.0); Eosinophils # (auto) 0.1 10 ^3/uL (0-0.8); Eosinophils % (auto) 1.2 % (0.0-7.0); Hematocrit 28.6 % (36.0-46.0); Lymphocytes # (auto) 0.6 10 ^3/uL (0.4-5.4); Lymphocytes % (auto) 5.1 % (10.0-50.0); Mean Corpuscular Hemoglobin 28.8 pg (28.0-32.0); Mean Corpuscular Hgb Conc. 31.6 g/dL (32.0-36.0); Mean Corpuscular Volume 91.3 fL (80.0-100.0); Neutrophils # (auto) 9.4 10 ^3/uL (1.6-8.6); Neutrophils % (auto) 84.1 % (37.0-80.0); Red Blood Cells 3.13 10^6/uL (4.0-5.20); Red Cell Distribution Width 17.4 % (11.8-14.3); White Blood Cell 11.2 10^3/uL (4.4-10.8)
[2023-06-01 04:42] LABS: Alkaline Phosphatase 184 U/L (46-116); Anion Gap 8 (5-15); Carbon Dioxide 24 mmol/L (20-30); Chloride 109 mmol/L (98-107); Glucose 105 mg/dL (74-106); Potassium 3.7 mmol/L (3.5-5.1); Sodium 141 mmol/L (136-145)
[2023-06-01 04:43] LABS: Magnesium 1.9 mg/dL (1.6-2.6)
[2023-06-01 04:44] LABS: Aspartate Aminotransferase 24 U/L (13-40); Bilirubin, Total 0.4 mg/dL (0.2-1.0); Phosphorus 2.6 mg/dL (2.4-5.1); Total Protein 5.9 g/dL (5.7-8.2)
[2023-06-01 04:49] LABS: Alanine Aminotransferase 9 U/L (7-40); Blood Urea Nitrogen 51 mg/dL (9-23)
[2023-06-01] MEDS: InsuLIN REG 1unit/0.01ml Soln (100units/ml) SC SCH ×3 (05:23→18:00)
[2023-06-01] MEDS: ACCU-CHEK COMFORT CURVE STRIP VI SCH ×3 (05:23→18:00)
[2023-06-01] MEDS: ENOXAPARIN SOD 100 MG/1 ML SYRINGE SC SCH ×2 (05:36→16:28)
[2023-06-01] MEDS: MEROPENEM 1GM IVPB 50 ML IV SCH ×2 (10:12→22:43)
[2023-06-01] MEDS: FUROSEMIDE 40 MG/4 ML VIAL IV SCH (10:12)
[2023-06-01] MEDS: PANTOPRAZOLE 40 MG/10 ML VIAL INJ IV SCH ×2 (10:12→22:43)
[2023-06-01] MEDS: SODIUM CHLOR 0.9% PF (SALINE LOCK) 10ML VIAL/SYR IV SCH ×2 (10:13→22:00)
[2023-06-01] MEDS: NOREPINEPHRINE BITARTRATE 32 MG in SODIUM CHL 0.9% 218 ML IV SCH (12:15)
[2023-06-01] MEDS: OXYCODONE W/ ACETAMINOPHEN 5/325MG TABLET PO PRN ×2 (16:28→20:51)
[2023-06-01] MEDS ORDERED: TPN PER PHARMACY IV NR ×9 (20:00)
[2023-06-02] VITALS (17 sets, daily range): BP systolic 122–145; BP diastolic 56–68; PULSE 90–109; RESP 16–22; TEMP 97.4–98.9; O2SAT 96–100
[2023-06-02] MEDS: ALBUTEROL SULF 2.5 MG/0.5ML(0.5%) NEB SOLN NEB PRN ×4 (00:40→18:14)
[2023-06-02] MEDS: IPRATROPIUM BROM 0.5 MG/2.5ML INH SOL NEB SCH ×4 (00:40→18:14)
[2023-06-02] MEDS: OXYCODONE W/ ACETAMINOPHEN 5/325MG TABLET PO PRN ×4 (02:04→23:18)
[2023-06-02 03:54] LABS: Basophils # (auto) 0.1 10 ^3/uL (0-0.2); Eosinophils # (auto) 0.2 10 ^3/uL (0-0.8); Hemoglobin 8.3 g/dL (12.2-16.2); Lymphocytes # (auto) 0.7 10 ^3/uL (0.4-5.4); White Blood Cell 11.8 10^3/uL (4.4-10.8)
[2023-06-02 03:56] LABS: Basophils % (auto) 0.7 % (0.0-2.0); Eosinophils % (auto) 1.6 % (0.0-7.0); Hematocrit 25.5 % (36.0-46.0); Lymphocytes % (auto) 5.7 % (10.0-50.0); Mean Corpuscular Hgb Conc. 32.6 g/dL (32.0-36.0); Mean Corpuscular Volume 88.7 fL (80.0-100.0); Monocytes % (auto) 8.7 % (0.0-12.0); Neutrophils # (auto) 9.8 10 ^3/uL (1.6-8.6); Neutrophils % (auto) 83.3 % (37.0-80.0); Red Blood Cells 2.87 10^6/uL (4.0-5.20); Red Cell Distribution Width 16.7 % (11.8-14.3)
[2023-06-02 04:19] LABS: Albumin 2.9 g/dL (3.2-4.8); Alkaline Phosphatase 184 U/L (46-116); Anion Gap 8 (5-15); Aspartate Aminotransferase 23 U/L (13-40); BUN/Creatinine Ratio 34.3 (10.0-20.0); Bilirubin, Total 0.4 mg/dL (0.2-1.0); Blood Urea Nitrogen 47 mg/dL (9-23); Calcium 8.4 mg/dL (8.7-10.4); Carbon Dioxide 24 mmol/L (20-30); Chloride 107 mmol/L (98-107); Glucose 104 mg/dL (74-106); Magnesium 1.9 mg/dL (1.6-2.6); Phosphorus 2.6 mg/dL (2.4-5.1); Potassium 3.7 mmol/L (3.5-5.1); Sodium 139 mmol/L (136-145); Total Protein 5.6 g/dL (5.7-8.2)
[2023-06-02 04:21] LABS: Alanine Aminotransferase < 9 U/L (7-40)
[2023-06-02] MEDS: ENOXAPARIN SOD 100 MG/1 ML SYRINGE SC SCH ×2 (05:45→21:33)
[2023-06-02] MEDS: InsuLIN REG 1unit/0.01ml Soln (100units/ml) SC SCH ×4 (06:00→18:00)
[2023-06-02] MEDS: ACCU-CHEK COMFORT CURVE STRIP VI SCH ×4 (06:16→18:20)
[2023-06-02] MEDS: PANTOPRAZOLE 40 MG/10 ML VIAL INJ IV SCH ×2 (09:43→21:29)
[2023-06-02] MEDS: FUROSEMIDE 40 MG/4 ML VIAL IV SCH (09:43)
[2023-06-02] MEDS: SODIUM CHLOR 0.9% PF (SALINE LOCK) 10ML VIAL/SYR IV SCH ×2 (09:46→21:31)
[2023-06-02] MEDS: MEROPENEM 1GM IVPB 50 ML IV SCH (09:52)
[2023-06-02] MEDS ORDERED: TPN PER PHARMACY IV NR ×10 (20:00)
[2023-06-02] MEDS: FUROSEMIDE 40 MG TAB PO SCH (21:31)
[2023-06-03] VITALS (11 sets, daily range): BP systolic 124–143; BP diastolic 52–57; PULSE 90–105; RESP 16–22; TEMP 97.8–98.2; O2SAT 97–100
[2023-06-03] MEDS: ACCU-CHEK COMFORT CURVE STRIP VI SCH ×3 (00:29→11:30)
[2023-06-03] MEDS: IPRATROPIUM BROM 0.5 MG/2.5ML INH SOL NEB SCH ×3 (00:48→11:39)
[2023-06-03] MEDS: ALBUTEROL SULF 2.5 MG/0.5ML(0.5%) NEB SOLN NEB PRN (00:48)
[2023-06-03] MEDS: OXYCODONE W/ ACETAMINOPHEN 5/325MG TABLET PO PRN ×2 (04:36→09:34)
[2023-06-03 05:48] LABS: Alkaline Phosphatase 196 U/L (46-116); Anion Gap 7 (5-15); Blood Urea Nitrogen 40 mg/dL (9-23); Calcium 8.4 mg/dL (8.7-10.4); Carbon Dioxide 26 mmol/L (20-30); Chloride 103 mmol/L (98-107); Glucose 99 mg/dL (74-106); Magnesium 1.9 mg/dL (1.6-2.6); Sodium 136 mmol/L (136-145)
[2023-06-03 05:49] LABS: Aspartate Aminotransferase 23 U/L (13-40); Bilirubin, Total 0.4 mg/dL (0.2-1.0); Phosphorus 2.8 mg/dL (2.4-5.1)
[2023-06-03 05:50] LABS: Total Protein 5.8 g/dL (5.7-8.2)
[2023-06-03 05:53] LABS: Alanine Aminotransferase < 9 U/L (7-40)
[2023-06-03] MEDS: InsuLIN REG 1unit/0.01ml Soln (100units/ml) SC SCH ×3 (06:00→11:30)
[2023-06-03 07:44] LABS: Basophils # (auto) 0.1 10 ^3/uL (0-0.2); Basophils % (auto) 0.6 % (0.0-2.0); Eosinophils # (auto) 0.2 10 ^3/uL (0-0.8); Eosinophils % (auto) 1.8 % (0.0-7.0); Hematocrit 27.8 % (36.0-46.0); Lymphocytes # (auto) 0.7 10 ^3/uL (0.4-5.4); Lymphocytes % (auto) 7.2 % (10.0-50.0); Mean Corpuscular Hgb Conc. 32.4 g/dL (32.0-36.0); Mean Corpuscular Volume 89.3 fL (80.0-100.0); Monocytes # (auto) 0.9 10 ^3/uL (0-1.3); Monocytes % (auto) 9.6 % (0.0-12.0); Neutrophils # (auto) 7.3 10 ^3/uL (1.6-8.6); Neutrophils % (auto) 80.8 % (37.0-80.0); Nucleated Red Blood Cells % 0.1 %; Red Blood Cells 3.11 10^6/uL (4.0-5.20); Red Cell Distribution Width 16.9 % (11.8-14.3); White Blood Cell 9.1 10^3/uL (4.4-10.8)
[2023-06-03] MEDS: ENOXAPARIN SOD 100 MG/1 ML SYRINGE SC SCH (09:33)
[2023-06-03] MEDS: PANTOPRAZOLE 40 MG/10 ML VIAL INJ IV SCH (09:33)
[2023-06-03] MEDS: FUROSEMIDE 40 MG TAB PO SCH (09:33)
[2023-06-03] MEDS: SODIUM CHLOR 0.9% PF (SALINE LOCK) 10ML VIAL/SYR IV SCH (09:35)
[2023-06-03] MEDS: Ensure Enlive Strawberry 8oz Bottle PO SCH ×2 (11:04→13:04)
[2023-06-03] MEDS ORDERED: OXYCODONE W/ ACETAMINOPHEN 5/325MG TABLET PO ONE (11:15)
[2023-06-03] MEDS ORDERED: FURO40TA4 PO (13:08)
[2023-06-03] MEDS ORDERED: PANT40TA2 PO (13:08)
[2023-06-03] MEDS ORDERED: APIX5TAB PO ×2 (13:08)
[2023-06-03] MEDS ORDERED: MYC15TP TOP (13:35)
[2023-06-03] MEDS ORDERED: METH5TAB2 PO (13:35)
[2023-06-03] MEDS ORDERED: OXY10CRT PO (13:35)
[2023-06-03] MEDS ORDERED: GABA-339 PO (13:35)
[2023-06-03] MEDS ORDERED: HYDR2.5L PR (13:35)
[2023-06-03] MEDS ORDERED: ACET-1881 PO (13:35)
== END 2023-06-03 15:25 | disposition home health service (06) | DRG 710 ==
LOC: EDBD 06:40 → ER 06:40 → TELE 10:40 → ICU WEST 15:02 → TELE-EAST 06-02 04:30 → EAST 06-02 11:56
PROVIDERS: ADMIT Internal Medicine Pulmonary Disease; ATTEND Internal Medicine Pulmonary Disease
PROC: 0D1B0Z4 Bypass Ileum to Cutaneous, Open Approach (ICD-10-PCS; 2023-05-14)
PROC: 0DBN0ZZ Excision of Sigmoid Colon, Open Approach (ICD-10-PCS; 2023-05-14)
PROC: 0BH17EZ Insertion of Endotracheal Airway into Trachea, Via Natural or Artificial Opening (ICD-10-PCS; 2023-05-14)
PROC: 0DBK0ZZ Excision of Ascending Colon, Open Approach (ICD-10-PCS; 2023-05-14)
PROC: 02HV33Z Insertion of Infusion Device into Superior Vena Cava, Percutaneous Approach (ICD-10-PCS; 2023-05-14)
PROC: B548ZZA Ultrasonography of Superior Vena Cava, Guidance (ICD-10-PCS; 2023-05-14)
PROC: 0DBL0ZZ Excision of Transverse Colon, Open Approach (ICD-10-PCS; 2023-05-14)
PROC: 0DBM0ZZ Excision of Descending Colon, Open Approach (ICD-10-PCS; 2023-05-14)
PROC: 0DBB0ZZ Excision of Ileum, Open Approach (ICD-10-PCS; 2023-05-14)
PROC: 5A1955Z Respiratory Ventilation, Greater than 96 Consecutive Hours (ICD-10-PCS; principal; 2023-05-14 12:09)
PROC: BT131ZZ Fluoroscopy of Bilateral Kidneys using Low Osmolar Contrast (ICD-10-PCS; 2023-05-17)
PROC: 30243N1 Transfusion of Nonautologous Red Blood Cells into Central Vein, Percutaneous Approach (ICD-10-PCS; 2023-05-17)
PROC: 0T25X0Z Change Drainage Device in Kidney, External Approach (ICD-10-PCS; 2023-05-28)
DX: A41.9 Sepsis, unspecified organism (principal); N17.0 Acute kidney failure with tubular necrosis; J95.821 Acute postprocedural respiratory failure; K63.1 Perforation of intestine (nontraumatic); K65.1 Peritoneal abscess; R65.21 Severe sepsis with septic shock; A04.72 Enterocolitis due to Clostridium difficile, not specified as recurrent; K55.9 Vascular disorder of intestine, unspecified; E43 Unspecified severe protein-calorie malnutrition; E87.20 Acidosis, unspecified; J18.9 Pneumonia, unspecified organism; E66.9 Obesity, unspecified; C53.9 Malignant neoplasm of cervix uteri, unspecified; N18.9 Chronic kidney disease, unspecified; B96.5 Pseudomonas (aeruginosa) (mallei) (pseudomallei) as the cause of diseases classified elsewhere; D63.8 Anemia in other chronic diseases classified elsewhere; D69.6 Thrombocytopenia, unspecified; E87.70 Fluid overload, unspecified; I50.810 Right heart failure, unspecified; I82.401 Acute embolism and thrombosis of unspecified deep veins of right lower extremity; N32.2 Vesical fistula, not elsewhere classified; N10 Acute pyelonephritis; T83.022A Displacement of nephrostomy catheter, initial encounter; Y73.2 Prosthetic and other implants, materials and accessory gastroenterology and urology devices associated with adverse incidents; Z90.49 Acquired absence of other specified parts of digestive tract; Z87.891 Personal history of nicotine dependence; Z85.51 Personal history of malignant neoplasm of bladder; Z85.41 Personal history of malignant neoplasm of cervix uteri; Z99.11 Dependence on respirator [ventilator] status; Z68.32 Body mass index [BMI] 32.0-32.9, adult
CPT/HCPCS: 31500; 36415; 36569; 36600; 50430; 50435; 70450; 71045; 74176; 74425; 75984; 80048; 80053; 80069; 80202; 81001; 82565; 82570; 82805; 82962; 83036; 83605; 83690; 83735; 83880; 84100; 84132; 84156; 84300; 84443; 84478; 84484; 84702; 85007; 85014; 85018; 85025; 85027; 85610; 85730; 86850; 86900; 86901; 86920; 87040; 87070; 87077; 87081; 87086; 87088; 87186; 87205; 92507; 92610; 93005; 93306; 93971; 94002; 94003; 94640; 97110; 97116; 97163; 97530; 99152; 99291; C1729; C9113; G0378; J0461; J0692; J1450; J2185; J2250; J2543; J2704; J3480; J3490; J7060; J7131; Q9967

== ENCOUNTER 2023-06-10 13:02 | Inpatient (IN) | payer MEDICAID ==
[~2023-06-10] VITALS: Ht 162.6 cm; Wt 78.3 kg
[~2023-06-10 13:02] MED LIST: ACET-1881 PO; APIX5TAB PO; FURO40TA4 PO; GABA-339 PO; HYDR2.5L PR; METH5TAB2 PO; MYC15TP TOP; OXY10CRT PO; PANT40TA2 PO
[2023-06-10 13:53] LABS: Lymphocytes # (auto) 1.7 10 ^3/uL (0.4-5.4); Monocytes # (auto) 1.7 10 ^3/uL (0-1.3)
[2023-06-10 13:56] LABS: Basophils # (auto) 0.1 10 ^3/uL (0-0.2); Basophils % (auto) 0.3 % (0.0-2.0); Eosinophils # (auto) 0.2 10 ^3/uL (0-0.8); Hematocrit 31.8 % (36.0-46.0); Hemoglobin 10.2 g/dL (12.2-16.2); Lymphocytes % (auto) 10.3 % (10.0-50.0); Mean Corpuscular Hemoglobin 28.8 pg (28.0-32.0); Mean Corpuscular Hgb Conc. 32.1 g/dL (32.0-36.0); Mean Corpuscular Volume 89.5 fL (80.0-100.0); Monocytes % (auto) 9.9 % (0.0-12.0); Neutrophils # (auto) 13.3 10 ^3/uL (1.6-8.6); Neutrophils % (auto) 78.5 % (37.0-80.0); Nucleated Red Blood Cells % 0.1 %; Red Blood Cells 3.56 10^6/uL (4.0-5.20); Red Cell Distribution Width 16.4 % (11.8-14.3); White Blood Cell 16.9 10^3/uL (4.4-10.8)
[2023-06-10 14:02] LABS: Chloride 103 mmol/L (98-107); Potassium 4.4 mmol/L (3.5-5.1); Sodium 133 mmol/L (136-145)
[2023-06-10 14:03] LABS: Anion Gap 8 (5-15); Calcium 8.6 mg/dL (8.5-10.1); Carbon Dioxide 22 mmol/L (20-30)
[2023-06-10 14:08] LABS: BUN/Creatinine Ratio 11.2 (10.0-20.0); Blood Urea Nitrogen 17 mg/dL (9-23); Glucose 106 mg/dL (74-106)
[2023-06-10 14:14] LABS: Lactic Acid w/Reflex 2.5 mmol/L (0.4-2.0)
[2023-06-10 15:30] VITALS: PULSE 98; RESP 19; O2SAT 95
[2023-06-10 16:24] LABS: INR 1.19 (0.9-1.15); Partial Thromboplastin Time 27.5 SEC (24.5-34.5); Prothrombin Time 12.4 sec (9.3-11.8)
[2023-06-10] MEDS ORDERED: ONDANSETRON HCL 4 MG/2 ML VIAL IV PRN (16:30)
[2023-06-10] MEDS ORDERED: NITROGLYCERIN 0.4 MG SL TAB SL PRN (16:30)
[2023-06-10] MEDS ORDERED: ACETAMINOPHEN 325 MG TAB PO PRN (16:30)
[2023-06-10] MEDS ORDERED: MORPHINE SULFATE INJ 2 MG/ml SYRG IV PRN (16:30)
[2023-06-10] MEDS: SODIUM CHLORIDE 0.9% 1,000 ML IVB ONE (16:56)
[2023-06-10] MEDS: VANCOMYCIN 1GM/200ML 200 ML IV ONE (16:56)
[2023-06-10] MEDS: PIPERACILLIN-TAZOB 3.375GM 100 ML IV ONE (18:00)
[2023-06-10] MEDS: SODIUM CHLORIDE 0.9% 1,000 ML IV ONE (18:49)
[2023-06-10] MEDS: SODIUM CHLORIDE 0.9% 1,000 ML IV SCH (18:58)
[2023-06-10 20:00] VITALS: PULSE 96; RESP 23; O2SAT 95
[2023-06-10] MEDS: oxyCODONE HCL 5MG TAB PO PRN (20:55)
[2023-06-10] MEDS: PANTOPRAZOLE 40 MG TAB PO SCH (20:55)
[2023-06-10] MEDS: NYSTATIN-TRIAMCINOLONE TOPICAL CRE 15GM TOP SCH (22:00)
[2023-06-10] MEDS: metroNIDAZOLE 500MG/100ML 100 ML IV SCH (22:00)
[2023-06-10] MEDS: METHADONE HCL 10 MG TAB PO SCH (23:04)
[2023-06-10] MEDS: GABAPENTIN 400 MG CAP PO SCH (23:04)
[2023-06-11 05:28] LABS: Hemoglobin 8.3 g/dL (12.2-16.2); Red Blood Cells 2.96 10^6/uL (4.0-5.20); Red Cell Distribution Width 16.5 % (11.8-14.3)
[2023-06-11 05:30] LABS: Hematocrit 26.2 % (36.0-46.0); Mean Corpuscular Hgb Conc. 31.6 g/dL (32.0-36.0); Mean Corpuscular Volume 88.7 fL (80.0-100.0); White Blood Cell 11.8 10^3/uL (4.4-10.8)
[2023-06-11 05:34] LABS: Urine Bacteria FEW /hpf (None Seen); Urine Blood 2+ /uL (Negative); Urine Budding Yeast FEW /hpf (None Seen); Urine Clarity HAZY (Clear); Urine Protein, UAD 1+ (Negative); Urine Specific Gravity 1.008 (1.001-1.035); Urine Urobilinogen Normal (Negative); Urine WBC 25 /hpf (0 - 5); Urine pH 5.5 (5.0-8.0)
[2023-06-11 05:36] LABS: Basophils % (manual) 0 (0.0-2.0); Blast Cells 0; Metamyelocytes % 0; Myelocytes % 0; Promyelocytes % 0; Reactive Lymphocytes 0
[2023-06-11 05:49] LABS: Alanine Aminotransferase < 9 U/L (7-40); Albumin 2.7 g/dL (3.2-4.8); Alkaline Phosphatase 83 U/L (46-116); Anion Gap 7 (5-15); Aspartate Aminotransferase 13 U/L (13-40); BUN/Creatinine Ratio 15.5 (10.0-20.0); Bilirubin, Total 0.2 mg/dL (0.2-1.0); Blood Urea Nitrogen 22 mg/dL (9-23); Calcium 7.8 mg/dL (8.5-10.1); Carbon Dioxide 23 mmol/L (20-30); Chloride 107 mmol/L (98-107); Glucose 86 mg/dL (74-106); Potassium 3.8 mmol/L (3.5-5.1); Sodium 137 mmol/L (136-145); Total Protein 5.3 g/dL (5.7-8.2)
[2023-06-11 05:59] LABS: Urine Color Straw (Yellow)
[2023-06-11] MEDS: SODIUM CHLORIDE 0.9% 500 ML IV ONE (06:30)
[2023-06-11 07:30] VITALS: PULSE 80; RESP 14; O2SAT 96
[2023-06-11 07:32] LABS: Band Neutrophils % (manual) 5; Eosinophils % (manual) 2 (0-7); Lymphocytes % (manual) 14 (10.0-50.0); Monocytes % (manual) 10 (0-12); Platelet Estimate Adequate
[2023-06-11 07:33] LABS: Anisocytosis Slight
[2023-06-11 07:34] LABS: Large Platelets FEW; Stomatocytes Few
[2023-06-11] MEDS: cefTRIAXone 1GM/50ML D5W 50 ML IV SCH (08:42)
[2023-06-11] MEDS ORDERED: AUG875T PO (12:56)
[2023-06-11 14:09] VITALS: BP 107/69; PULSE 67; RESP 18; TEMP 97.9; O2SAT 97
[2023-06-11 14:47] VITALS: BP 107/69; PULSE 67; RESP 18; TEMP 97.9; O2SAT 97
== END 2023-06-11 16:10 | disposition home or self-care (01) | DRG 720 ==
LOC: ER 13:02 → TELE 16:31 → TELE-WESTW 06-11 12:50
PROVIDERS: ADMIT Internal Medicine Pulmonary Disease; ATTEND Internal Medicine Pulmonary Disease
DX: A41.9 Sepsis, unspecified organism (principal); I95.9 Hypotension, unspecified; T81.41XA Infection following a procedure, superficial incisional surgical site, initial encounter; Y83.8 Other surgical procedures as the cause of abnormal reaction of the patient, or of later complication, without mention of misadventure at the time of the procedure; N13.9 Obstructive and reflux uropathy, unspecified; Z85.51 Personal history of malignant neoplasm of bladder; Z85.41 Personal history of malignant neoplasm of cervix uteri; Z79.899 Other long term (current) drug therapy; Z79.01 Long term (current) use of anticoagulants; Z90.49 Acquired absence of other specified parts of digestive tract; Z87.891 Personal history of nicotine dependence; Y92.89 Other specified places as the place of occurrence of the external cause
CPT/HCPCS: 36415; 74176; 80048; 80053; 81001; 83605; 83690; 85007; 85025; 85027; 85610; 85730; 87040; 87086; 87205; G0378; J2543; J3490